=== PATIENT | female | born 1950 | race Caucasian/White ===

== ENCOUNTER → 2018-03-14 09:29 | Outpatient (CLI) | payer MEDICARE, SELFPAY ==
--- NOTE | 2018-03-14 09:30 | XR_ITS ---
XR foot wt bearing LT 3V HISTORY: Foot pain ITS.REASON: pain ORDERING PHYSICIAN: Dianelys Tan DPM PATIENT AGE: 67 years COMPARISON: None FINDINGS: No fracture or dislocation. No lytic or blastic change. There is normal mineralization.. The joint spaces are well-preserved. No significant degenerative/arthritic changes. No erosive changes evident. There is a small calcaneal spur. Normal alignment IMPRESSION: Small calcaneal spur otherwise negative
--- NOTE | 2018-03-14 10:15 | XR_ITS ---
XR foot wt bearing RT 3V HISTORY: Foot pain ITS.REASON: pain ORDERING PHYSICIAN: Dianelys Tan DPM PATIENT AGE: 67 years COMPARISON: None FINDINGS: No fracture or dislocation. No lytic or blastic change. There is normal mineralization.. The joint spaces are well-preserved. No significant degenerative/arthritic changes. No erosive changes evident. There is a small calcaneal spur IMPRESSION: Small calcaneal spur otherwise negative right
--- NOTE | 2018-03-14 10:15 | MM_ITS ---
MM Dig screening mamm BI w/CAD CAD Screening ORDERING PHYSICIAN : Dianelys Tan DPM PATIENT AGE: 67 years GENDER: Female INDICATION: Routine screening. No hormones. No new complaints; noncontributory family history. TECHNIQUE: Standard CC and MLO images were obtained. R2 CAD reviewed. COMPARISON: Previous mammograms: January 2017 digital mammogram June 2009 film screen mammogram FINDINGS: Low-density breast bilaterally with generalized fatty replacement. Minimal residual fibroglandular elements most notable towards upper-outer quadrant. However we see no dominant mass nor suspicious calcifications. CAD review highlights no areas of concern either. With this bilateral follow-up in one year the adequate. . IMPRESSION: Negative stable bilateral mammogram Low-density breast. No new areas concern. Follow-up in one year recommended. BI-RADS Category: 1 Negative RECOMMENDED FOLLOW-UP: 1YR - 1 YEAR FOLLOW-UP (A letter has been sent to the patient regarding results of the study.)
== END ==
PROVIDERS: Visit Provider Podiatrist
DX: Z12.31 Encounter for screening mammogram for malignant neoplasm of breast (principal); M79.673 Pain in unspecified foot; B35.1 Tinea unguium
CPT/HCPCS: 73630; 77067; 87102; 87206; 87220

== ENCOUNTER → 2019-03-16 10:45 | Outpatient (CLI) | payer MEDICARE, SELFPAY ==
--- NOTE | 2019-03-16 10:50 | MM_ITS ---
MM Dig screening mamm BI w/CAD ORDERING PHYSICIAN : Lizet Darby PATIENT AGE: 68 years GENDER: Female COMPARISON: Bilateral digital screening mammogram January 2017, March 2018, Film screen mammogram June 2009 INDICATION: ITS.Routine screening mammogram. No hormones. No new complaints. Noncontributory family history. TECHNIQUE: Standard CC and MLO images were obtained. R2 CAD reviewed. FINDINGS: Minimal residual fibroglandular elements/ Lower density breast with moderate generalized fatty replacement . No suspicious focal mass. No dominant mass nor suspicious calcifications. Overall similar pattern to previous studies with some minor residual fibroglandular elements superior right and left breast towards upper-outer quadrant bilateral. Bilateral follow-up in one year adequate RIGHT BREAST:Stable appearance right breast with no significant new findings. Follow-up in one year. LEFT BREAST: . No new areas of significant concern. Some minimal density in the cc view towards lateral breast appears similar to previous studies when technique is considered. Also these areas dissipate and no longer evident on the MLO view of this no findings in 2 views to raise significant concern. A follow-up in not over one year would be recommended & and would be encouraged/emphasized. I would also note that the CAD computer review highlighted no areas of significant concern in either breast ......... IMPRESSION: ......... No new areas of significant concern. Follow-up in one year recommended Fairly Stable minor area densities towardslateral breast on cc view appear to dissipate on the MLO view & seen to be most likely stable on cc view technique considered. 1 recommended and encouraged bilateral follow-up one year for ongoing evaluation BI-RADS Category: 2 Benign Finding(s) RECOMMENDED FOLLOW-UP: 1YR 1 YEAR FOLLOW-UP Follow-up in one year recommended and should be emphasized/encouraged (A letter has been sent to the patient regarding results of the study.) ,
== END ==
PROVIDERS: PCP Nurse Practitioner Family; Visit Provider Nurse Practitioner Family
DX: Z12.31 Encounter for screening mammogram for malignant neoplasm of breast (principal)
CPT/HCPCS: 77067

== ENCOUNTER → 2020-04-21 09:52 | Outpatient (CLI) | payer MEDICARE, SELFPAY ==
--- NOTE | 2020-04-21 09:57 | MM_ITS ---
PROCEDURE: MM DIG SCREENING MAMM BI W/CAD Digital Breast Tomosynthesis Included CLINICAL INDICATION: SCREENING There is no personal or family history of breast cancer. COMPARISON: [facility] DIG MAMM-SCREEN SCAR W/CAD from 02/04/2017 [facility] MM Dig screening mamm BI w/CAD from 03/14/2018 DIG MAMM-SCREEN SCAR from 03/16/2019 TECHNIQUE: Standard CC and MLO images and 3D Tomosynthesis was obtained. R2 CAD reviewed. FINDINGS: The breasts are composed primarily of fat with minimal scattered fibroglandular densities in each breast. There few benign-appearing microcalcifications in each breast. There is no suspicious lesion in either breast and no suspicious microcalcifications. IMPRESSION: Fatty type breast parenchyma with no suspicious lesions seen BI-RAD Category: 2 Benign Finding(s) FOLLOW-UP: 1YR 1 Year Follow-up (A letter has been sent to the patient regarding results of the study.) Dictated by: Dr. Norm Mantilla MD 04/22/2020 10:[address] Norm Mantilla MD in [place] 04/22/2020 10:05
== END ==
PROVIDERS: PCP Nurse Practitioner Family; Visit Provider Nurse Practitioner Family
DX: Z12.31 Encounter for screening mammogram for malignant neoplasm of breast (principal)
CPT/HCPCS: 77063; 77067

== ENCOUNTER 2020-08-23 09:12 | Emergency (ER) | payer MEDICARE, SELFPAY ==
--- NOTE | 2020-08-23 09:10 | ECG_ITS ---
APPROVED REPORT Exam: Resting ECG HR:75 bpm ECG Measurements Heart Rate 75 AXES NH 130 P 45 QRSd 86 QRS -15 QT 410 T 56 QTc 457 Conclusion Normal sinus rhythm Low voltage QRS Borderline ECG Electronically signed by : Servando Ingram, 08/25/2020 09:27:12
[2020-08-23 09:12] VITALS: BP 135/71; PULSE 82; RESP 16; TEMP 36.6; O2SAT 98; BMI 32.5
[2020-08-23 09:23] LABS: POC Glucose,Bedside 116 (70-110)
--- NOTE | 2020-08-23 09:25 | CT_ITS ---
PROCEDURE: CT HEAD/BRAIN WO CON Referring Doctor: Scott Briceno Patient Age:69Y CLINICAL INDICATION: transient vertigo Dizziness started this morning COMPARISON: MR [employer]/O MRI-C-SPINE W/O from 02/04/2017 TECHNIQUE: No IV contrast. Standard axial images were obtained. All CT scans at the facility use one or more dose reduction, viz: automated exposure control, ma/kV adjustment per patient size (including targeted exams where dose is matched to indication, i.e. head), or iterative reconstruction technique. FINDINGS: No acute intracranial findings. No territorial infarct evident. Mild age-appropriate cerebral atrophy Note subtle vague low-density in deep white matter cerebral hemispheres, reflecting chronic small vessel deep white-matter ischemic gliotic changes.-Common feature in maturing brain particularly with history hypertension diabetes, smoking vascular risk factors etc. No intracranial hemorrhage. No hydrocephalus.The ventricles and basal cisterns appear clear and satisfactory. No mass or midline shift nor mass effect. No subdural or extra-axial fluid collection is evident. Posterior fossa unremarkable. Skull intact-Mastoid air cells are well developed and clear.Nomastoid effusions. Middle ear clear. IAC's symmetric. Nosinus air-fluid level. Visualized portions of the paranasal sinuses and orbits unremarkable. IMPRESSION: No acute intracranial findings Suggestion minimal chronic small vessel deep white-matter ischemic gliotic changes cerebral hemispheres bilateral Dictated by: Bravo Ramirez MD 08/23/2020 10:12 Bravo Ramirez MD in [place] 08/23/2020 10:12
--- NOTE | 2020-08-23 09:26 | HMH.EDDIZZ ---
ED Disposition Clinical Impression: Benign paroxysmal positional vertigo Qualifiers: Laterality: right Qualified Code(s): H81.11 - Benign paroxysmal vertigo, right ear Disposition: Home, Self-Care Condition on Discharge: Good Instructions: Vertigo Prescriptions: Meclizine HCl [Meclizine 25mg Tab] 25 mg PO Q8HP PRN #30 tab PRN Reason: dizziness/vertigo Transmission Status: Pending to [id number] Referrals: Provider,Referral, MD [Primary Care Provider] - - Critical Care Critical Care Time: No Attestation: On , the high probability of a clinically significant, sudden or life threatening deterioration of the following system(s) required my full and direct attention, intervention and personal management. The time I documented below is in addition to time spent performing reported procedures but includes the following listed in this critical care notation. Medical Decision Making - Medical Records Medical records reviewed: Yes: I reviewed the patient's medical records. - Louie Inquiry Pt receiving controlled substance: No Vital Signs: 08/23/20 09:12 08/23/20 10:02 Temperature 98 F Temperature Source Oral Pulse Rate [Radial] 82 75 Respiratory Rate 16 16 Blood Pressure [Right Arm] 135/71 154/77 H Blood Pressure Mean [Right Arm] 92 102 Blood Pressure Source [Right Arm] Automatic Cuff Blood Pressure Position [Right Arm] Sitting Sitting 02 Sat by Pulse Oximetry 98 98 Oxygen Delivery Method Room Air Room Air - Lab Data Lab Results 08/23/20 09:15: POC Glucose 116 H 08/23/20 09:25: WBC 6.0, RBC 4.60, Hgb 13.2, Hct 41.2, MCV 89.6, MCH 28.8, MCHC 32.1, RDW 13.9, Plt Count 221, MPV 8.3, Neut % (Auto) 68.2, Lymph % (Auto) 21.8, [place] % (Auto) 6.2, Eos % (Auto) 2.9, Baso % (Auto) 0.9, Neut # (Auto) 4.1, Lymph # (Auto) 1.3, [place] # (Auto) 0.4, Eos # (Auto) 0.2, Baso # (Auto) 0.1 08/23/20 09:25: Sodium 139, Potassium 3.7, Chloride 104, Carbon Dioxide 27, Anion Gap 11.7, BUN 15, Creatinine 0.60, Estimated Creat Clear 75, Estimated GFR 99, Est GFR ( Amer) 120, Glucose 115 H, Calcium 9.7, Magnesium 2.0, Total Bilirubin 0.7, AST 34, ALT 21, Alkaline Phosphatase 136 H, Total Protein 7.5, Albumin 4.4, Globulin 3.1, Albumin/Globulin Ratio 1.4 Result diagrams: 08/23/20 09:25 08/23/20 09:25 Orders (Tests/Meds): ED MEDICATIONS Discontinued Medications Generic Name Dose Route Start Last Admin Trade Name Frank PRN Reason Stop Dose Admin Meclizine HCl 25 mg 08/23/20 09:30 08/23/20 09:37 Meclizine 25mg Tablet PO 08/23/20 09:31 25 mg ONCE ONE Administration - CT Data CT Scan: Head Time Received: 10:[address] Reviewed: Yes: I have reviewed the patient's CT results, I have viewed the radiologist's interpretation Preliminary Findings: Normal/NAD - ECG Data Tracing #1 ECG initial impression date: 08/23/20 ECG initial impression time: 09:15 ECG normal with no acute: arrhythmias, ischemia, conduction abnormalities, chamber hypertrophy Normal Sinus Rhythm: Yes Dizzy HPI - General Chief Complaint: Dizziness Stated Complaint: weakness Time Seen by Provider: 08/23/20 09:20 Mode of Arrival: EMS Limitations: No Limitations Description of Symptoms (Recalled from ER Triage Doc. by RN): to ed per squad pt states woke up this am with dizziness and generalized weakness. family verbalized ? facial droop. pt states she had difficulty getting out of bed states dizziness resolved but continue to c/o generalized weakness. no slurred speech, facial droop or extremitiy drift noted - History of Present Illness HPI Narrative: This is a 69-year-old female who presents by EMS with episodic/transient dizziness upon awakening. Symptoms began approximately 45 minutes ago and lasted approximately 30 minutes. Symptoms resolved prior to arrival. Patient reported that she has trouble setting up in the bed but due to the dizziness and vertigo and had to hold onto the wall while standing. Sym
[2020-08-23 09:30] LABS: Basophils # 0.1 K/mm3 (0-0.2); Basophils % 0.9 % (0.1-2.0); Eosinophils # 0.2 K/mm3 (0.0-0.4); Eosinophils % 2.9 % (0.1-12.0); Hematocrit 41.2 % (37.0-47.0); Hemoglobin 13.2 g/dL (12.2-16.2); Lymphocytes # 1.3 K/mm3 (0.7-4.5); Lymphocytes % 21.8 % (10-50); Mean Corpuscular HGB Conc 32.1 g/dL (31.8-35.4); Mean Corpuscular Hemoglobin 28.8 pg (27.0-31.2); Mean Corpuscular Volume 89.6 fl (81-99); Mean Platelet Volume 8.3 fl (7.4-10.4); Monocytes # 0.4 K/mm3 (0.1-1.0); Monocytes % 6.2 % (1.7-9.3); Neutrophils # 4.1 K/mm3 (1.8-7.8); Neutrophils % 68.2 % (37.0-80.0); Platelet Count 221 K/mm3 (142-424); Red Cell Distribution Width 13.9 % (11.5-17.5)
[2020-08-23 09:38] LABS: Potassium 3.7 mmoL/L (3.5-5.1); Sodium 139 mmol/L (136-145)
[2020-08-23 09:40] LABS: Blood Urea Nitrogen 15 mg/dl (7-17); Creatinine Clearance Estimated 75 mL/min (50-200); Estimated Glomerular Filt Rate 99 ml/min (>60); GFR (African American) 120 ML/MIN (>60)
[2020-08-23 09:41] LABS: Alanine Aminotransferase 21 U/L (12-78); Albumin Level 4.4 g/dl (3.5-5.0); Albumin/Globulin Ratio 1.4 (1.1-1.8); Alkaline Phosphatase 136 U/L (38-126); Aspartate Amino Transferase 34 U/L (14-36); Bilirubin,Total 0.7 mg/dl (0.2-1.3); Calcium 9.7 mg/dl (8.4-10.2); Carbon Dioxide 27 mmol/L (22.0-30.0); Globulin 3.1 g/dL (1.3-3.2); Glucose 115 mg/dl (74-100); Total Protein,Serum 7.5 g/dl (6.3-8.2)
[2020-08-23 09:52] LABS: Anion Gap 11.7 mEq/L (5-15); Chloride 104 mmol/L (98-107)
[2020-08-23 10:02] VITALS: BP 154/77; PULSE 75; RESP 16; O2SAT 98
[2020-08-23 10:35] VITALS: BP 145/73; PULSE 74; RESP 16; TEMP 36.6; O2SAT 98
== END 2020-08-23 10:36 | disposition home or self-care (01) ==
PROVIDERS: Emergency Provider Emergency Medicine; PCP Nurse Practitioner Family
DX: H81.11 Benign paroxysmal vertigo, right ear (principal); I10 Essential (primary) hypertension; E78.5 Hyperlipidemia, unspecified; Z79.899 Other long term (current) drug therapy
CPT/HCPCS: 70450; 80053; 82962; 83735; 85025; 93005; 99283

== ENCOUNTER 2020-09-08 13:45 | Outpatient (RCR) | payer MEDICARE, SELFPAY | END 2020-09-08 14:20 | disposition home or self-care (01) | LOC: PT 13:45 | PROVIDERS: PCP Nurse Practitioner Family; Visit Provider Nurse Practitioner Family | DX: H81.10 Benign paroxysmal vertigo, unspecified ear (principal) | CPT/HCPCS: 97140; 97163 ==

== ENCOUNTER → 2021-04-23 13:10 | Outpatient (CLI) | payer MEDICARE, SELFPAY ==
--- NOTE | 2021-04-23 13:13 | MM_ITS ---
PROCEDURE INFORMATION: Exam: MG Screening 3D Mammography Exam date and time: 04/23/2021 1:13 PM Age: 70 years old Clinical indication: Screening mammogram TECHNIQUE: Imaging protocol: Screening tomosynthesis and 2D mammography including computer-aided detection (CAD) when performed. COMPARISON: 1. MG MM DIG SCREENING MAMM BI W/CAD 04/21/2020 10:03 AM 2. MG DIG MAMM-SCREEN SCAR 03/16/2019 11:11 AM 3. MG [facility] MM Dig screening mamm BI w/CAD 03/14/2018 10:23 AM 4. MG [facility] DIG MAMM-SCREEN SCAR W/CAD 02/04/2017 5:39 PM FINDINGS: MAMMOGRAPHY: Breast composition: There are scattered areas of fibroglandular density. Mass: None. Architectural distortion: No new or suspicious architectural distortion. Calcifications: No new or suspicious calcifications are present Asymmetric density: No new or suspicious asymmetric density is present Skin thickening: None. Axillary adenopathy: None. IMPRESSION: No mammographic evidence of malignancy. Recommend annual screening mammography unless otherwise clinically indicated. ASSESSMENT: BI-RADS category 1: Negative
== END ==
PROVIDERS: PCP Nurse Practitioner Family; Visit Provider Nurse Practitioner Family
DX: Z12.31 Encounter for screening mammogram for malignant neoplasm of breast (principal)
CPT/HCPCS: 77063; 77067

== ENCOUNTER → 2022-02-04 15:51 | Outpatient (CLI) | payer MEDICARE, SELFPAY ==
--- NOTE | 2022-02-04 15:59 | XR_ITS ---
FINAL REPORT TECHNIQUE: Chest PA & Lateral CLINICAL HISTORY: COUGH FINDINGS: 2 views of the chest were performed. The heart size is normal. The mediastinum is within normal limits. There is chronic scarring in the left lung base. There is no acute cardiopulmonary process. There are no pleural effusions. There is no pneumothorax. The bony thorax appears intact. IMPRESSION: No acute cardiopulmonary process. Reviewed, Interpreted and Dictated by Robe Baird MD Transcribed by Efrain Parra Authenticated by Robe Baird MD on 02/04/2022 04:38:40 PM [facility]
[2022-02-04 17:15] LABS: Basophils # 0.3 K/mm3 (0-0.2); Basophils % 4.1 % (0.1-2.0); Eosinophils # 0.2 K/mm3 (0.0-0.4); Hematocrit 40.4 % (37.0-47.0); Hemoglobin 12.9 g/dL (12.2-16.2); Lymphocytes # 1.6 K/mm3 (0.7-4.5); Lymphocytes % 19.8 % (10-50); Mean Corpuscular HGB Conc 31.8 g/dL (31.8-35.4); Mean Corpuscular Hemoglobin 28.9 pg (27.0-31.2); Mean Corpuscular Volume 90.8 fl (81-99); Mean Platelet Volume 9.1 fl (7.4-10.4); Monocytes # 0.7 K/mm3 (0.1-1.0); Monocytes % 8.3 % (1.7-9.3); Neutrophils # 5.2 K/mm3 (1.8-7.8); Neutrophils % 65.8 % (37.0-80.0); Platelet Count 230 K/mm3 (142-424); Red Blood Count 4.45 M/mm3 (4.20-5.40); Red Cell Distribution Width 14.6 % (11.5-17.5); White Blood Count 7.9 K/mm3 (4.8-10.8)
[2022-02-04 17:23] LABS: Chloride 102 mmol/L (98-107); Potassium 4.3 mmoL/L (3.5-5.1); Sodium 139 mmol/L (136-145)
[2022-02-04 17:26] LABS: Alanine Aminotransferase 19 U/L (12-78); Albumin Level 3.7 g/dl (3.5-5.0); Albumin/Globulin Ratio 1.4 (1.1-1.8); Alkaline Phosphatase 161 U/L (38-126); Anion Gap 8.3 mEq/L (5-15); Aspartate Amino Transferase 25 U/L (14-36); Bilirubin,Total 0.6 mg/dl (0.2-1.3); Blood Urea Nitrogen 16 mg/dl (7-17); Calcium 8.9 mg/dl (8.4-10.2); Carbon Dioxide 33 mmol/L (22.0-30.0); Estimated Glomerular Filt Rate 99 ml/min (>60); GFR (African American) 119 ML/MIN (>60); Globulin 2.6 g/dL (1.3-3.2); Glucose 98 mg/dl (74-100); Total Protein,Serum 6.3 g/dl (6.3-8.2)
== END ==
PROVIDERS: PCP Nurse Practitioner Family; Visit Provider Nurse Practitioner Family
DX: I10 Essential (primary) hypertension (principal); R05.9 Cough, unspecified
CPT/HCPCS: 36415; 71046; 80053; 85025

== ENCOUNTER → 2022-04-26 09:05 | Outpatient (CLI) | payer MEDICARE, SELFPAY ==
--- NOTE | 2022-04-26 09:10 | MM_ITS ---
PROCEDURE INFORMATION: Exam: MG Bilateral Screening 3D Mammography Exam date and time: 04/26/2022 9:19 AM Age: 71 years old Clinical indication: Screening mammogram TECHNIQUE: Imaging protocol: Bilateral Screening tomosynthesis and 2D mammography including computer-aided detection (CAD) when performed. COMPARISON: 1. MG MM DIG SCREENING MAMM BI W/CAD 04/23/2021 1:16 PM 2. MG MM DIG SCREENING MAMM BI W/CAD 04/21/2020 10:03 AM 3. MG DIG MAMM-SCREEN SCAR 03/16/2019 11:11 AM 4. MG [facility] MM Dig screening mamm BI w/CAD 03/14/2018 10:23 AM FINDINGS: MAMMOGRAPHY: Breast composition: There are scattered areas of fibroglandular density. Mass: None. Architectural distortion: No new or suspicious architectural distortion. Calcifications: No new or suspicious calcifications are present Asymmetric density: No new or suspicious asymmetric density is present Skin thickening: None. Axillary adenopathy: None. IMPRESSION: No mammographic evidence of malignancy. Recommend annual screening mammography unless otherwise clinically indicated. ASSESSMENT: BI-RADS category 1: Negative
--- NOTE | 2022-04-26 09:45 | XR_ITS ---
FINAL REPORT TECHNIQUE: Bone densitometry calculations of the lumbar spine and left hip were obtained. CLINICAL HISTORY: . post menopausal FINDINGS: DEXA BONE DENSITY AXIAL SKELETON Using L1-4, the bone mineral density of the spine is 1.087 g/cm2, corresponding to T-score of 0.4. Using the left hip, the bone mineral density of the femoral neck is 0.827 g/cm2, corresponding to a T-score of -0.2. NOTE: T-score: Standard deviation compared with peak bone mass of young adult mean. *Following the recommendations of the International Society of Bone densitometry, classification of hip BMD is based on the lower of two T-scores; total hip or femoral neck. IMPRESSION: Normal bone mineral density of the lumbar spine and hip. Reviewed, Interpreted and Dictated by Celestino Crowder III, MD Transcribed by Meghana Mcgee Authenticated and [facility]
== END ==
PROVIDERS: PCP Nurse Practitioner Family; Visit Provider Nurse Practitioner Family
DX: Z12.31 Encounter for screening mammogram for malignant neoplasm of breast (principal); Z78.0 Asymptomatic menopausal state
CPT/HCPCS: 77063; 77067; 77080

== ENCOUNTER → 2022-09-21 13:30 | Outpatient (CLI) | payer MEDICARE, SELFPAY ==
--- NOTE | 2022-09-21 13:34 | XR_ITS ---
FINAL REPORT TECHNIQUE: Chest PA & Lateral CLINICAL HISTORY: ACUTE BRONCHITIS COMPARISON: 02/04/2022 FINDINGS: 2 views of the chest were performed. The heart size is normal. The mediastinum is within normal limits. There is no acute cardiopulmonary process. There are no pleural effusions. There is no pneumothorax. The bony thorax appears intact. IMPRESSION: No acute cardiopulmonary process. Reviewed, Interpreted and Dictated by Robe Baird MD Transcribed by Meghana Mcgee Authenticated and . [facility]
== END ==
PROVIDERS: PCP Nurse Practitioner Family; Visit Provider Nurse Practitioner Family
DX: J20.9 Acute bronchitis, unspecified (principal)
CPT/HCPCS: 71046

== ENCOUNTER → 2023-02-01 10:53 | Outpatient (CLI) | payer MEDICARE, SELFPAY ==
--- NOTE | 2023-02-01 10:57 | MR_ITS ---
FINAL REPORT CLINICAL HISTORY: RADICULOPATHY right hip pain with right leg pain since October 2022 FINDINGS: Multiplanar MR imaging of the lumbar spine was performed without contrast. On the sagittal T2-weighted images, there is abnormal decreased signal throughout the lumbar discs. The vertebrae are of normal height. There is grade 1 spondylolisthesis of L4 on L5 which is probably degenerative. There is fluid in the right SI joint. There is marrow edema throughout the right sacral ala. There is a questionable linear signal abnormality through the lateral right sacral ala favoring stress reaction. Underlying stress fracture cannot entirely be excluded. T12-L1: There is no significant canal stenosis or neural foraminal narrowing. L1-2: There is mild diffuse disc bulge with mild bilateral neural foraminal narrowing. L2-3: There is a mild diffuse disc bulge with mild bilateral neural foraminal narrowing. L3-4: There is a [id number] diffuse disc bulge. There is moderate facet hypertrophy. There is boue-io-yfkvkmmt spinal canal and bilateral neural foraminal narrowing. L4-5: There is a moderate diffuse disc bulge with moderate facet hypertrophy. There is moderate spinal canal stenosis. L5-S1: There is a mild diffuse disc bulge with mild bilateral neural foraminal narrowing. IMPRESSION: Fluid in the right SI joint with marrow edema throughout the right sacral ala and a questionable linear signal abnormality favoring stress reaction. Underlying stress fracture cannot be excluded. Grade 1 spondylolisthesis of L4 on L5 with moderate L4-L5 spinal canal stenosis. Reviewed, Interpreted and Dictated by Robe Baird MD Transcribed by Efrain Parra Authenticated and [facility]
== END ==
PROVIDERS: PCP Nurse Practitioner Family; Visit Provider Nurse Practitioner Family
DX: M51.16 Intervertebral disc disorders with radiculopathy, lumbar region (principal)
CPT/HCPCS: 72148; 76376

== ENCOUNTER 2023-03-02 11:00 | Outpatient (RCR) | payer MEDICARE, SELFPAY | END 2023-03-30 08:41 | disposition home or self-care (01) | LOC: PT 11:00 | PROVIDERS: PCP Nurse Practitioner Family; Visit Provider Orthopaedic Surgery | DX: M48.061 Spinal stenosis, lumbar region without neurogenic claudication (principal) | CPT/HCPCS: 97010; 97014; 97110; 97140; 97163; G0283 ==

== ENCOUNTER → 2023-03-28 17:13 | Outpatient (CLI) | payer MEDICARE, SELFPAY ==
[2023-03-28 17:18] LABS: T4 (Thyroxine) 10.6 ug/dl (5.53-11.0)
[2023-03-28 17:32] LABS: Thyroid Stimulating Hormone 1.64 uIU/mL (0.465-4.68)
== END ==
PROVIDERS: PCP Family Medicine; Visit Provider Family Medicine
DX: R53.83 Other fatigue (principal)
CPT/HCPCS: 84436; 84443

== ENCOUNTER → 2023-05-23 10:36 | Outpatient (CLI) | payer MEDICARE, SELFPAY ==
--- NOTE | 2023-05-23 10:39 | MM_ITS ---
PROCEDURE INFORMATION: Exam: MG Bilateral Screening 3D Mammography Exam date and time: 05/23/2023 10:37 AM Age: 72 years old Clinical indication: Screening examination TECHNIQUE: Imaging protocol: Bilateral Screening tomosynthesis and 2D mammography including computer-aided detection (CAD) when performed. COMPARISON: 1. MG MM DIG SCREENING MAMM BI W/CAD 04/26/2022 9:19 AM 2. MG MM DIG SCREENING MAMM BI W/CAD 04/23/2021 1:16 PM FINDINGS: MAMMOGRAPHY: Breast composition: There are scattered areas of fibroglandular density. Mass: None. Architectural distortion: None. Calcifications: No suspicious calcifications. Asymmetric density: None. Skin thickening: None. Axillary adenopathy: None. IMPRESSION: No mammographic evidence of malignancy. Annual screening is recommended unless otherwise clinically indicated. ASSESSMENT: BI-RADS Category 1: Negative
== END ==
PROVIDERS: PCP Family Medicine; Visit Provider Family Medicine
DX: Z12.31 Encounter for screening mammogram for malignant neoplasm of breast (principal)
CPT/HCPCS: 77063; 77067

== ENCOUNTER 2024-05-28 09:44 | Outpatient (CLI) | payer MEDICARE, SELFPAY ==
--- NOTE | 2024-05-28 09:49 | MM_ITS ---
PROCEDURE INFORMATION: Exam: MG Bilateral Screening 3D Mammography Exam date and time: 05/28/2024 9:44 AM Age: 73 years old Clinical indication: Screening examination TECHNIQUE: Imaging protocol: Bilateral Screening tomosynthesis and 2D mammography including computer-aided detection (CAD) when performed. COMPARISON: 1. MG MM DIG SCREENING MAMM BI W/CAD 05/23/2023 10:37 AM 2. MG MM DIG SCREENING MAMM BI W/CAD 04/26/2022 9:19 AM FINDINGS: MAMMOGRAPHY: Breast composition: There are scattered areas of fibroglandular density. Mass: None. Architectural distortion: None. Calcifications: No suspicious calcifications. Asymmetric density: None. Skin thickening: None. Axillary adenopathy: None. IMPRESSION: No mammographic evidence of malignancy. Annual screening is recommended unless otherwise clinically indicated. ASSESSMENT: BI-RADS Category 1: Negative
== END 2024-05-28 23:59 | disposition home or self-care (01) ==
LOC: RAD 09:45
PROVIDERS: PCP Nurse Practitioner Family; Visit Provider Nurse Practitioner Family
DX: Z12.31 Encounter for screening mammogram for malignant neoplasm of breast (principal)
CPT/HCPCS: 77063; 77067

== ENCOUNTER 2024-07-07 14:14 | Emergency (ER) | payer MEDICARE, SELFPAY ==
[2024-07-07 14:20] VITALS: BP 132/94; PULSE 84; RESP 19; TEMP 36.7; O2SAT 96; BMI 36.2
[2024-07-07 14:34] LABS: Apearance,Urine Cloudy (Clear); Bilirubin,Urine Negative (Negative); Blood, Urine 3+ (Negative); Color,Urine Yellow (Yellow); Glucose,Urine (UA) Negative (Negative); Ketones,Urine Negative (Negative); Protein,Urine Negative (Negative); Specific Gravity, Urine 1.015 (1.005-1.030); UTC Leukocyte Esterase,Urine 2+ (Negative); UTC Nitrate,Urine Negative (Negative); Urobilinogen,Urine 1 EU/dl (0.2)
--- NOTE | 2024-07-07 14:34 | EXP.UTC ---
Discharge Plan Disposition Patient Disposition: Home, Self-Care Condition: Good Prescriptions Prescriptions: New levofloxacin 500 mg tablet 500 mg PO DAILY 5 Days Qty: 5 0RF phenazopyridine [Pyridium] 200 mg tablet 200 mg PO Q8H Qty: 6 0RF No Action atorvastatin 20 mg tablet 1 tab PO DAILY 30 Days codeine-guaifenesin 10-100 mg/5 mL liquid 5 ml PO Q6H PRN (Reason: cough) Qty: 120 2RF methylprednisolone [Medrol (Matt)] 4 mg tablets,dose pack See Rx Instructions PO PER PKG DIR Qty: 21 0RF Rx Instructions: PO PER PKG DIR valsartan-hydrochlorothiazide 80-12.5 mg tablet 1 tab PO DAILY aspirin 81 mg tablet,delayed release (DR/EC) 81 mg PO DAILY loratadine 10 mg tablet 10 mg PO DAILY escitalopram oxalate [Lexapro] 10 mg tablet 10 mg PO DAILY Qty: 30 2RF Referrals Follow up/Referrals: Lizet Darby [Primary Care Provider] - See instructions Activity Restrictions/Add. Instructions Additional Instructions/Restrictions: Urine culture should be available Tuesday or Tuesday to ensure the proper antibiotic used Clinical Impressions Clinical Impression: Acute UTI Instructions Patient Instructions: DI for Urinary Tract Infection (UTI) Print Language Print Language: Kazakh Discharge ED Provider: Clarisa Hayes [facility] General Stated complaint: poss UTI Mode of Arrival: Ambulatory Source of Information: Patient Limitations: No Limitations Time Seen by Provider: 07/07/24 14:39 Description of Symptoms (Recalled from Triage Doc. by RN): PATIENT C/O FREQUENCY AND BURNING WITH URINATION AND PRESSURE TO LOWER ABDOMEN/PELVIC AREA THAT STARTED TODAY HEENT Symptoms (Recalled from RN notes): No Resp Symptoms (Recalled from RN notes): No Skin Symptoms (Recalled from RN notes): No MS Symptoms (Recalled from RN notes): No Functional Status (Recalled from RN notes): WNL History of Present Illness Provider Complaint: Dysuria, frequency since this am. No fever. No hematuria. No nausea/vomiting. Onset (ago): hour(s) (6) Location: pelvis Relieving factors: none Exacerbating factors: none Associated symptoms: denies other symptoms Treatments prior to arrival: none Related Data Home Medications ?Medication ?Instructions ?Recorded ?Confirmed atorvastatin 20 mg tablet 1 tab PO DAILY Cholesterol 30 days 03/14/18 05/26/23 aspirin 81 mg tablet,delayed 81 mg PO DAILY 03/28/23 05/26/23 release loratadine 10 mg tablet 10 mg PO DAILY 03/28/23 05/26/23 valsartan 80 1 tab PO DAILY HTN 03/28/23 05/26/23 mg-hydrochlorothiazide 12.5 mg tablet Previous Rx's ?Medication ?Instructions ?Recorded escitalopram oxalate 10 mg tablet 10 mg PO DAILY Depression #30 tabs 03/28/23 (Lexapro) codeine 10 mg-guaifenesin 100 mg/5 5 ml PO Q6H PRN cough #120 mL 05/26/23 mL oral liquid methylprednisolone 4 mg tablets in See Rx Instructions PO PER PKG DIR 05/26/23 a dose pack (Medrol (Matt)) #21 tabs levofloxacin 500 mg tablet 500 mg PO DAILY 5 days #5 tabs 07/07/24 phenazopyridine 200 mg tablet 200 mg PO Q8H 6 doses #6 tabs 07/07/24 (Pyridium) Allergies Allergy/AdvReac Type Severity Reaction Status Date / Time No Known Allergies Allergy Verified 05/26/23 15:18 Worker's Comp Is this a Worker's Comp case?: No [facility] Disclaimer: The information contained in this section may have been updated after the patient was seen, as this information can be updated by other users. Medical History Hyperlipidemia Hypertension Family History Father Coronary artery disease Mother Hyperlipidemia Hypertension Coronary artery disease Sister Hyperlipidemia Hypertension Diabetes Son Hyperlipidemia Hypertension Gout Son Diabetes Social History Smoking Status: Never smoker second hand expos
[2024-07-07 14:40] VITALS: BP 132/94; PULSE 84; RESP 19; TEMP 36.7; O2SAT 96
== END 2024-07-07 14:45 | disposition home or self-care (01) ==
PROVIDERS: Emergency Provider Physician Assistant; PCP Nurse Practitioner Family
DX: N39.0 Urinary tract infection, site not specified (principal); B96.29 Other Escherichia coli [E. coli] as the cause of diseases classified elsewhere
CPT/HCPCS: 81003; 87086; 87088; 87186; 99204; 99212; G0463

== ENCOUNTER 2025-05-03 10:16 | Outpatient (CLI) | payer MEDICARE, SELFPAY ==
--- OUTSIDE RECORDS SUMMARY | 2025-05-06 10:40 | XMS_ITS | Data Portability ---
Author Organization [employer], [place] [facility] [place] Address [address] [place] [address] Assessment Encounter Date Assessment Date Assessment LastModified by Organization Details LastModified Time 09/19/2024 09/19/2024 Declines colon cancer screening. [email or web address] Not available 09/19/2024 11:22:12 Plan of Treatment Reminders Order Date Submit Date Provider Last Modified By Organization Details Last Modified Time Details Appointments ANNUAL EXAM 2024 11:00A Melody Darby APRN Not available Not available Not available Lab CBC w/ auto diff 2023 024 JOHNATHAN [facility] [address] [place], [address], 09/20/2024 04:08:09 CMP, serum or plasma 2023 024 JOHNATHAN [facility] [address] [place], [address], 09/20/2024 04:08:09 HbA1c (hemoglob in A1c), blood 2023 024 JOHNATHAN [facility]), [facility] [place] [place], [address], 09/20/2024 04:08:10 TSH, ultra-sen sitive, serum 2023 024 JOHNATHAN [facility] [address] [place], [address], 09/20/2024 04:08:10 rapid flu (A+B) [address], [address], 03/21/2024 14:24:22 rapid SARS CoV 2 Ag, QL, IA, upper respirato ry specimen [address], [address] [place] [address], [id number], 03/21/2024 14:24:20 Referral None recorded. Procedures None recorded. Surgeries None recorded. Imaging None recorded. Medication Orders atorvasta tin 20 mg tablet 2024 025 [place] [employer] [facility], [address] [place] [address], [id number], 04/05/2025 11:56:11 valsartan 80 mg-hydroc hlorothia zide 12.5 mg tablet 2024 025 [place] [employer] [facility], [address] [place] [address], [id number], 04/05/2025 11:46:09 diazepam 5 mg tablet 2024 025 [place] [employer] [facility], [address] [place] [address], [id number], 04/05/2025 11:31:26 Depo-Medr ol 80 mg/mL suspensio n for injection 2024 025 [email or web address] Not available 04/05/2025 10:57:32 methocarb medardo 750 mg tablet 2024 025 [place] [employer] [facility], [address] [place] [address], [id number], 01/08/2025 12:19:32 atorvasta tin 20 mg tablet 2023 024 [place] [employer] [facility], [address] [place] [address], [id number], 03/08/2025 17:38:04 valsartan 80 mg-hydroc hlorothia zide 12.5 mg tablet 2023 024 [employer] [facility], [address] [place] [address], [id number], 04/04/2025 17:19:20 escitalop ronald 10 mg tablet 2023 024 [facility], [address] [place] [address], [id number], 01/31/2025 14:52:07 cyclobenz aprine 5 mg tablet 2023 025 [facility], [address] [place] [address], [id number], 01/08/2025 09:41:28 Depo-Medr ol 40 mg/mL suspensio n for injection 2023 024 [email or web address] Not available 09/19/2024 11:13:28 Celebrex 200 mg capsule 2023 025 [facility], [address] [place] [address], [id number], 01/08/2025 09:41:28 Paxlovid 300 mg (150 mg x 2)-100 mg tablets in a dose pack 2023 024 [facility], [address] [place] [address], [id number], 09/12/2024 14:48:27 Patient TargetsNo targets recorded. Patient InstructionsNo instructions recorded. Reason for Referral None Reported. Results Created Date Observation Date Name Description Value Unit Range Abnormal Flag Note LastModifiedBy Organization Detail LastModifiedTime 03/20/20 24 03/21/2024 LIPID PANEL , STAND STEFANO cholesterol, total 187 mg/dL <200 normal Not Available [facility] [place] [facility] [address] [place] [address], [place], [address], 03/21/2024 08:30:20 03/20/20 24 03/21/2024 LIPID PANEL , STAND STEFANO HDL cholesterol 73 mg/dL > or = 50 normal Not Available [facility] [place] [facility] [address], [place], [address], 03/21/2024 08:30:20 03/20/20 24 03/21/2024 LIPID PANEL , STAND STEFANO triglyceride s 109 mg/dL <150 normal Not Available [facility] [place] [facility] [address], [place], [address], 03/21/2024 08:30:20 03/20/20 24 03/21/2024 LIPID PANEL , STAND STEFANO LDL-choleste rol 93 mg/dL _(dinah c) normal Refer ence range : <100 Eulalia able range <100 mg/dL for prima ry preve ntion ; <70 mg/dL for patie nts with CHD or diabe tic patie nts with > or = 2 CHD risk facto rs. LDL-C is now calcu lated using the Claire n-Hop kins calcu aj n, which is a valid ated novel padma jamil than the Fried francie equat ion in the estim ation of LDL-C . Claire bolanos SS et al. JESUS. 2013; 310(1 9): 2061- 2068 (http ://ed garthati on.Qu Ava turkAltaVitas. com/f aq/FA Q164) Not Available [facility] [place] [facility] [address], [place], [address], 03/21/2024 08:30:20 03/20/20 24 03/21/2024 LIPID PANEL , STAND STEFANO chol/HDLC ratio 2.6 (calc ) <5.0 normal Not Available [facility] [place] [facility] [address], [place], [address], 03/21/2024 08:30:20 03/20/20 24 03/21/2024 LIPID PANEL , STAND STEFANO non HDL cholesterol 114 mg/dL _(dinah c) <130 normal For patie nts with diabe aj plus 1 major ASCVD risk facto r, treat ing to a non-H DL-C goal of <100 mg/dL (LDL- C of <70 mg/dL ) is consi bernadined a thera peuti c optio n. Not Available [facility] [place] [facility] [address] [place], [address], 03/21/2024 08:30:20 03/20/20 24 03/21/2024 COMPR EHENS KERRY METAB OLIC PANEL glucose 90 mg/dL 65-99 normal Fasti ng refer ence inter ivanna Not Available [facility] [place] [facility] [address] [place], [address], 03/21/2024 08:30:21 03/20/20 24 03/21/2024 COMPR EHENS KERYR METAB OLIC PANEL urea nitrogen (BUN) 19 mg/dL 7-25 normal Not Available [facility] [place] [facility] [address] [place], [address], 03/21/2024 08:30:21 03/20/20 24 03/21/2024 COMPR EHENS KERRY METAB OLIC PANEL creatinine 0.64 mg/dL 0.60-1 .00 normal Not Available [facility] [address] [place], [address], 03/21/2024 08:30:21 03/20/20 24 03/21/2024 COMPR EHENS KERRY METAB OLIC PANEL eGFR 93 mL/mi n/1.7 3m2 > or = 60 normal Not Available [facility] [place] [facility] [address] [place], [address], 03/21/2024 08:30:21 03/20/20 24 03/21/2024 COMPR EHENS KERRY METAB OLIC PANEL BUN/creatini ne ratio SEE NOTE: (calc ) 6-22 Not Repor odilia: BUN and Creat inine are withi n refer ence range . Not Available [facility] [facility] [address] [place], [address], 03/21/2024 08:30:21 03/20/20 24 03/21/2024 COMPR EHENS KERRY METAB OLIC PANEL sodium 141 mmol/ L 135-14 6 normal Not Available [facility] [address] [place], [address], 03/21/2024 08:30:21 03/20/20 24 03/21/2024 COMPR EHENS KERRY METAB OLIC PANEL potassium 4.4 mmol/ L 3.5-5. 3 normal Not Available [employer] [facility] [address] [place], [address], 03/21/2024 08:30:21 03/20/20 24 03/21/2024 COMPR EHENS KERRY METAB OLIC PANEL chloride 104 mmol/ L 98-110 normal Not Available [facility] [address] [place], [address], 03/21/2024 08:30:21 03/20/20 24 03/21/2024 COMPR EHENS KERRY METAB OLIC PANEL carbon dioxide 31 mmol/ L 20-32 normal Not Available [facility] [facility] [address] [place], [address], 03/21/2024 08:30:21 03/20/20 24 03/21/2024 COMPR EHENS KERRY METAB OLIC PANEL calcium 9.1 mg/dL 8.6-10 .4 normal Not Available [employer] [facility] [address] [place], [address], 03/21/2024 08:30:21 03/20/20 24 03/21/2024 COMPR EHENS KERRY METAB OLIC PANEL protein, total 6.3 g/dL 6.1-8. 1 normal Not Available [facility] [address] [place], [address], 03/21/2024 08:30:21 03/20/20 24 03/21/2024 COMPR EHENS KERRY METAB OLIC PANEL albumin 3.9 g/dL 3.6-5. 1 normal Not Available [facility] [place] [address] [facility] [place], [address], 03/21/2024 08:30:21 03/20/20 24 03/21/2024 COMPR EHENS KERRY METAB OLIC PANEL globulin 2.4 g/dL_ (calc ) 1.9-3. 7 normal Not Available [facility] [address] [facility] [place], [address], 03/21/2024 08:30:21 03/20/20 24 03/21/2024 COMPR EHENS KERRY METAB OLIC PANEL albumin/glob ulin ratio 1.6 (calc ) 1.0-2. 5 normal Not Available [facility] [address] [facility] [place], [address], 03/21/2024 08:30:21 03/20/20 24 03/21/2024 COMPR EHENS KERRY METAB OLIC PANEL bilirubin, total 0.7 mg/dL 0.2-1. 2 normal Not Available [employer] [facility] [address] [facility] [place], [address], 03/21/2024 08:30:21 03/20/20 24 03/21/2024 COMPR EHENS KERRY METAB OLIC PANEL alkaline phosphatase 124 U/L 37-153 normal Not Available [facility] [address] [facility] [place], [address], 03/21/2024 08:30:21 03/20/20 24 03/21/2024 COMPR EHENS KERRY METAB OLIC PANEL AST 16 U/L 10-35 normal Not Available [facility] [facility] [address] [place], [address], 03/21/2024 08:30:21 03/20/20 24 03/21/2024 COMPR EHENS KERRY METAB OLIC PANEL ALT 14 U/L 6-29 normal Not Available [facility] [address] [facility] [place], [address], 03/21/2024 08:30:21 03/20/20 24 03/21/2024 CBC (INCL UDES DIFF/ PLT) white blood cell count 6.9 thous and/u L 3.8-10 .8 normal Not Available [facility] [address] [facility] [place], [address], 03/21/2024 07:49:19 03/20/20 24 03/21/2024 CBC (INCL UDES DIFF/ PLT) red blood cell count 4.16 joann on/uL 3.80-5 .10 normal Not Available [facility] [address] [facility] [place], [address], 03/21/2024 07:49:19 03/20/2003/21/2024 CBC (INCL UDES DIFF/ PLT) hemoglobin 12.1 g/dL 11.7-1 5.5 normal Not Available [facility] [address] [facility] [place], [address], 03/21/2024 07:49:19 03/20/20 24 03/21/2024 CBC (INCL UDES DIFF/ PLT) hematocrit 38.0 % 35.0-4 5.0 normal Not Available [facility] [address] [facility] [place], [address], 03/21/2024 07:49:19 03/20/20 24 03/21/2024 CBC (INCL UDES DIFF/ PLT) MCV 91.3 fL 80.0-1 00.0 normal Not Available [facility] [address] [facility] [place], [address], 03/21/2024 07:49:19 03/20/20 24 03/21/2024 CBC (INCL UDES DIFF/ PLT) MCH 29.1 pg 27.0-3 3.0 normal Not Available [facility] [place] [facility] [address] [facility] [place], [address], 03/21/2024 07:49:19 03/20/20 24 03/21/2024 CBC (INCL UDES DIFF/ PLT) MCHC 31.8 g/dL 32.0-3 6.0 low Not Available [facility] [place] [facility] [address] [facility] [place], [address], 03/21/2024 07:49:19 03/20/20 24 03/21/2024 CBC (INCL UDES DIFF/ PLT) RDW 13.7 % 11.0-1 5.0 normal Not Available [facility] [place] [facility] [address] [place], [address], 03/21/2024 07:49:19 03/20/20 24 03/21/2024 CBC (INCL UDES DIFF/ PLT) platelet count 212 thous and/u L 140-40 0 normal Not Available [facility] [address] [facility] [place], [address], 03/21/2024 07:49:19 03/20/20 24 03/21/2024 CBC (INCL UDES DIFF/ PLT) MPV 10.8 fL 7.5-12 .5 normal Not Available [facility] [place] [facility] [address] [facility] [place], [address], 03/21/2024 07:49:19 03/20/20 24 03/21/2024 CBC (INCL UDES DIFF/ PLT) absolute neutrophils 5548 cells /uL 1500-7 800 normal Not Available [facility] [place] [facility] [address] [facility] [place], [address], 03/21/2024 07:49:19 03/20/20 24 03/21/2024 CBC (INCL UDES DIFF/ PLT) absolute lymphocytes 718 cells /uL 850-39 00 low Not Available [facility] [place] [facility] [address] [facility] [place], [address], 03/21/2024 07:49:19 03/20/20 24 03/21/2024 CBC (INCL UDES DIFF/ PLT) absolute monocytes 483 cells /uL 200-95 0 normal Not Available [facility] [place] [facility] [address] [facility] [place], [address], 03/21/2024 07:49:19 03/20/20 24 03/21/2024 CBC (INCL UDES DIFF/ PLT) absolute eosinophils 110 cells /uL 15-500 normal Not Available [facility] [place] [facility] [address] [facility] [place], [address], 03/21/2024 07:49:19 03/20/20 24 03/21/2024 CBC (INCL UDES DIFF/ PLT) absolute basophils 41 cells /uL 0-200 normal Not Available [facility] [place] [facility] [address] [facility] [place], [address], 03/21/2024 07:49:19 03/20/20 24 03/21/2024 CBC (INCL UDES DIFF/ PLT) neutrophils 80.4 % normal Not Available [facility] [place] [facility] [address] [facility] [place], [address], 03/21/2024 07:49:19 03/20/20 24 03/21/2024 CBC (INCL UDES DIFF/ PLT) lymphocytes 10.4 % normal Not Available [facility] [place] [facility] [address] [facility] [place], [address], 03/21/2024 07:49:19 03/20/20 24 03/21/2024 CBC (INCL UDES DIFF/ PLT) monocytes 7.0 % normal Not Available [facility] [place] [facility] [address] [facility], [place], [address], 03/21/2024 07:49:19 03/20/20 24 03/21/2024 CBC (INCL UDES DIFF/ PLT) eosinophils 1.6 % normal Not Available [facility] [place] [facility] [address] [place], [address], 03/21/2024 07:49:19 03/20/20 24 03/21/2024 CBC (INCL UDES DIFF/ PLT) basophils 0.6 % normal Not Available [facility] [place] [facility] [address] [place], [address], 03/21/2024 07:49:19 03/21/20 24 03/21/2024 rapid SARS CoV 2 Ag, QL, IA, upper respi rator y speci men SARS CoV Ag positi ve Not Available [address], [address], 03/21/2024 10:40:59 03/21/20 24 03/21/2024 rapid flu (A+B) Flu A negati ve Not Available [address], [address], 03/21/2024 10:40:58 03/21/20 24 03/21/2024 rapid flu (A+B) Flu B negati ve Not Available [address], [address], 03/21/2024 10:40:58 09/19/20 24 09/20/2024 CBC WITH DIFFE RENTI AL/PL ATELE T WBC 6.4 x10e3 /uL 3.4-10 .8 normal Not Available [facility] ([facility]) [address] [facility], [place], [address], 09/20/2024 04:08:09 11/06/20 24 09/20/2024 CBC WITH DIFFE RENTI AL/PL ATELE T RBC 4.48 x10e6 /uL 3.77-5 .28 normal Not Available [facility] ([facility]) [address] [place], [address], 09/20/2024 04:08:09 09/19/20 24 09/20/2024 CBC WITH DIFFE RENTI AL/PL ATELE T hemoglobin 12.6 g/dL 11.1-1 5.9 normal Not Available [facility] ([facility]) [address] [place], [address], 09/20/2024 04:08:09 09/19/20 24 09/20/2024 CBC WITH DIFFE RENTI AL/PL ATELE T hematocrit 40.1 % 34.0-4 6.6 normal Not Available [facility] ([facility]) [address] [place], [address], 09/20/2024 04:08:09 09/19/20 24 09/20/2024 CBC WITH DIFFE RENTI AL/PL ATELE T MCV 90 fL 79-97 normal Not Available [facility] ([facility]) [address] [place], [address], 09/20/2024 04:08:09 09/19/20 24 09/20/2024 CBC WITH DIFFE RENTI AL/PL ATELE T MCH 28.1 pg 26.6-3 3.0 normal Not Available [facility] ([facility]) [address] [place], [address], 09/20/2024 04:08:09 09/19/20 24 09/20/2024 CBC WITH DIFFE RENTI AL/PL ATELE T MCHC 31.4 g/dL 31.5-3 5.7 below low normal Not Available [facility] ([facility]) [address] [place], [address], 09/20/2024 04:08:09 09/19/20 24 09/20/2024 CBC WITH DIFFE RENTI AL/PL ATELE T RDW 13.0 % 11.7-1 5.4 Not Available [facility] ([facility]) [address] [facility], [place], [address], 09/20/2024 04:08:09 09/19/20 24 09/20/2024 CBC WITH DIFFE RENTI AL/PL ATELE T platelets 261 x10e3 /uL 150-45 0 normal Not Available [facility] ([facility]) [address] [facility], [place], [address], 09/20/2024 04:08:09 09/19/20 24 09/20/2024 CBC WITH DIFFE RENTI AL/PL ATELE T neutrophils 70 % not estab. normal Not Available [facility] ([facility]) [address] [facility], [place], [address], 09/20/2024 04:08:09 09/19/20 24 09/20/2024 CBC WITH DIFFE RENTI AL/PL ATELE T lymphs 20 % not estab. normal Not Available [facility] ([facility]) [address] [facility], [place], [address], 09/20/2024 04:08:09 09/19/20 24 09/20/2024 CBC WITH DIFFE RENTI AL/PL ATELE T monocytes 8 % not estab. normal Not Available [facility] ([facility]) [address] [facility], [place], [address], 09/20/2024 04:08:09 09/19/20 24 09/20/2024 CBC WITH DIFFE RENTI AL/PL ATELE T eos 1 % not estab. normal Not Available [facility] ([facility]) [address] [facility], [place], [address], 09/20/2024 04:08:09 09/19/20 24 09/20/2024 CBC WITH DIFFE RENTI AL/PL ATELE T basos 1 % not estab. normal Not Available [facility] ([facility]) [address] [facility], [place], [address], 09/20/2024 04:08:09 09/19/20 24 09/20/2024 CBC WITH DIFFE RENTI AL/PL ATELE T immature cells TECHNICAL TRAINING COORDINATOR Not Available [facility] ([facility]) [address] [facility], [place], [address], 09/20/2024 04:08:09 09/19/20 24 09/20/2024 CBC WITH DIFFE RENTI AL/PL ATELE T neutrophils (absolute) 4.5 x10e3 /uL 1.4-7. 0 normal Not Available [facility] ([facility]) [address] [facility], [place], [address], 09/20/2024 04:08:09 09/19/20 24 09/20/2024 CBC WITH DIFFE RENTI AL/PL ATELE T lymphs (absolute) 1.3 x10e3 /uL 0.7-3. 1 normal Not Available [facility] ([facility]) [address] [place], [address], 09/20/2024 04:08:09 09/19/20 24 09/20/2024 CBC WITH DIFFE RENTI AL/PL ATELE T monocytes(ab solute) 0.5 x10e3 /uL 0.1-0. 9 normal Not Available [facility] ([facility]) [address] [place], [address], 09/20/2024 04:08:09 09/19/20 24 09/20/2024 CBC WITH DIFFE RENTI AL/PL ATELE T eos (absolute) 0.1 x10e3 /uL 0.0-0. 4 normal Not Available [facility] ([facility]) [address] [place], [address], 09/20/2024 04:08:09 09/19/20 24 09/20/2024 CBC WITH DIFFE RENTI AL/PL ATELE T baso (absolute) 0.1 x10e3 /uL 0.0-0. 2 normal Not Available [facility] ([facility]) [address] [facility], [place], [address], 09/20/2024 04:08:09 09/19/20 24 09/20/2024 CBC WITH DIFFE RENTI AL/PL ATELE T immature granulocytes 0 % not estab. Not Available [facility] ([facility]) [address] [facility], [place], [address], 09/20/2024 04:08:09 09/19/20 24 09/20/2024 CBC WITH DIFFE RENTI AL/PL ATELE T immature grans (abs) 0.0 x10e3 /uL 0.0-0. 1 Not Available [facility] ([facility]) [address] [facility], [place], [address], 09/20/2024 04:08:09 09/19/20 24 09/20/2024 CBC WITH DIFFE RENTI AL/PL ATELE T NRBC TECHNICAL TRAINING COORDINATOR Not Available [facility] ([facility]) [address] [facility], [place], [address], 09/20/2024 04:08:09 09/19/20 24 09/20/2024 CBC WITH DIFFE RENTI AL/PL ATELE T hematology comments: TECHNICAL TRAINING COORDINATOR Not Available [facility] ([facility]) [address] [facility], [place], [address], 09/20/2024 04:08:09 09/19/20 24 09/20/2024 COMP. METAB OLIC PANEL (14) glucose 92 mg/dL 70-99 normal Not Available [facility] ([facility]) [address] [facility], [place], [address], 09/20/2024 04:08:09 09/19/20 24 09/20/2024 COMP. METAB OLIC PANEL (14) BUN 19 mg/dL 8-27 normal Not Available [facility] ([facility]) [address] [place], [address], 09/20/2024 04:08:09 09/19/20 24 09/20/2024 COMP. METAB OLIC PANEL (14) creatinine 0.71 mg/dL 0.57-1 .00 normal Not Available [facility] ([facility]) [address] [place], [address], 09/20/2024 04:08:09 09/19/20 24 09/20/2024 COMP. METAB OLIC PANEL (14) eGFR 89 mL/mi n/1.7 3 >59 normal Not Available [facility] ([facility]) [address], [place], [address], 09/20/2024 04:08:09 09/19/20 24 09/20/2024 COMP. METAB OLIC PANEL (14) BUN/creatini ne ratio 27 12-28 normal Not Available [facility] ([facility]) [address] [facility] [place], [address], 09/20/2024 04:08:09 09/19/20 24 09/20/2024 COMP. METAB OLIC PANEL (14) sodium 141 mmol/ L 134-14 4 normal Not Available [facility] ([facility]) [address] [facility] [place], [address], 09/20/2024 04:08:09 09/19/20 24 09/20/2024 COMP. METAB OLIC PANEL (14) potassium 4.1 mmol/ L 3.5-5. 2 normal Not Available [facility] ([facility]) [address] [facility] [place], [address], 09/20/2024 04:08:09 09/19/20 24 09/20/2024 COMP. METAB OLIC PANEL (14) chloride 101 mmol/ L 96-106 normal Not Available [facility] ([facility]) [address] [place], [address], 09/20/2024 04:08:09 09/19/20 24 09/20/2024 COMP. METAB OLIC PANEL (14) carbon dioxide, total 26 mmol/ L 20-29 normal Not Available [facility] ([facility]) [address] [place], [address], 09/20/2024 04:08:09 09/19/20 24 09/20/2024 COMP. METAB OLIC PANEL (14) calcium 9.9 mg/dL 8.7-10 .3 normal Not Available [facility] ([facility]) [address] [facility] [place], [address], 09/20/2024 04:08:09 09/19/20 24 09/20/2024 COMP. METAB OLIC PANEL (14) protein, total 6.6 g/dL 6.0-8. 5 normal Not Available [facility] ([facility]) [address] [facility], [place], [address], 09/20/2024 04:08:09 09/19/20 24 09/20/2024 COMP. METAB OLIC PANEL (14) albumin 4.0 g/dL 3.8-4. 8 normal Not Available [facility] ([facility]) [address] [facility] [place], [address], 09/20/2024 04:08:09 09/19/20 24 09/20/2024 COMP. METAB OLIC PANEL (14) globulin, total 2.6 g/dL 1.5-4. 5 Not Available [facility] ([facility]) [address] [facility] [place], [address], 09/20/2024 04:08:09 09/19/20 24 09/20/2024 COMP. METAB OLIC PANEL (14) bilirubin, total 0.4 mg/dL 0.0-1. 2 normal Not Available [facility] ([facility]) [address] [facility] [place], [address], 09/20/2024 04:08:09 09/19/20 24 09/20/2024 COMP. METAB OLIC PANEL (14) alkaline phosphatase 149 IU/L 44-121 above high normal Not Available [facility] ([facility]) [address] [place], [address], 09/20/2024 04:08:09 09/19/20 24 09/20/2024 COMP. METAB OLIC PANEL (14) AST (SGOT) 15 IU/L 0-40 normal Not Available [facility] ([facility]) [address] [place], [address], 09/20/2024 04:08:09 09/19/20 24 09/20/2024 COMP. METAB OLIC PANEL (14) ALT (SGPT) 16 IU/L 0-32 normal Not Available [facility] ([facility]) [address] [place], [address], 09/20/2024 04:08:09 09/19/20 24 09/20/2024 HEMOG LOBIN A1C hemoglobin A1C 6.1 % 4.8-5. 6 above high normal Predi abete s: 5.7 - 6.4 Diabe aj: >6.4 Glyce gloria contr ol for adult s with diabe aj: <7.0 Not Available [facility] ([facility]) [address] [place], [address], 09/20/2024 04:08:10 09/19/20 24 09/20/2024 TSH RFX ON ABNOR MAL TO FREE T4 TSH 3.100 uIU/m L 0.450- 4.500 normal Not Available [facility] ([facility]) [address] [facility], [place], [address], 09/20/2024 04:08:10 05/30/20 24 05/28/2024 MAMMO , scree terri, digit al, bilat eral No observ ation record ed. [facility] [address], [place], [address], 05/30/2024 16:11:00 Result Notes None recorded. Problems Name Problem SNOMED Code Status Onset Date Resolution Date Notes Provider Name and Address Organization Details Recorded Time Deepak reisen otoniel 19795157 Active 2023 Lizet Darby, [employer] [address] [place], [address] , [employer] 4 11:16:22 Neoplasm of uncertai n behavior of skin 94216069 Completed 202109/14/2022 Problem Code: D48.5; Problem Code Type: ICD-10; JAMESON MYNEAR null, [employer] 2 13:54:23 Neoplasm of uncertai n behavior of skin 07504214 Completed 201708/21/2018 Problem Code: D48.5; Problem Code Type: ICD-10; JAMESON MYNEAR null, [employer] 2 13:54:23 Mixed hyperlip idemia 575965150 Completed 201602/06/2018 Problem Code: E78.2; Problem Code Type: ICD-10; Not Available [facility] 2 22:14:16 Adjustme nt disorder with mixed anxiety and depresse d mood 468557765 Completed 202109/14/2022 Problem Code: F43.23; Problem Code Type: ICD-10; JAMESON MYNEAR null, [employer] 2 13:54:23 Impacted cerumen in right ear [id number] 25657 Completed 202109/14/2022 Problem Code: H61.21; Problem Code Type: ICD-10; JAMESON MYNEAR null, [employer] 2 13:54:22 Impacted cerumen of bilatera l ears 69039569145 43322 Completed 201809/14/2022 Problem Code: H61.23; Problem Code Type: ICD-10; JAMESON BARRYDUSTINEd null, [employer] 13:54:22 Benign paroxysm al position al vertigo or nystagmu s 418294684 Completed 201903/03/2021 Not [address] [facility] 2 22:14:16 Hyperten sive disorder 27224095 Completed 201608/07/2018 Problem Code: I10; Problem Code Type: ICD-10; Not Available [facility] 2 22:14:16 Acute sinusiti s 38409293 Completed 201908/31/2020 Problem Code: J01.90; Problem Code Type: ICD-10; Not Available [facility] 22:14:16 Disorder of upper respirat ory system 302231235 Completed 202109/14/2022 Problem Code: J06.9; Problem Code Type: ICD-10; JAMESON BARRYMAINE null, [employer] 13:54:22 Acute bronchit is 52298521 Completed 201809/14/2022 Problem Code: J20.9; Problem Code Type: ICD-10; JAMESON MYMAINE null, [employer] 13:54:22 Keratoma Completed 201708/12/2019 Problem Code: L84; Problem Code Type: ICD-10; Not Available [facility] 2 22:14:17 Inflamma tion of sacroili ac joint 29579416 Completed 202009/02/2021 Problem Code: M46.1; Problem Code Type: ICD-10; Not Available [facility] 2 22:14:17 Pain in left knee Completed 201908/31/2020 Problem Code: M25.562; Problem Code Type: ICD-10; Not Available [facility] 2 22:14:17 Urinary tract infectio us disease 65838787 Completed 201908/31/2020 Problem Code: N39.0; Problem Code Type: ICD-10; JAMESON MILLERR null, [employer] 2 13:54:23 Urinary tract infectio us disease 04817133 Completed 202109/14/2022 Problem Code: N39.0; Problem Code Type: ICD-10; JAMESON MILLERR null, [employer] 2 13:54:23 Menopaus e present 605960281 Completed 202109/14/2022 Problem Code: N95.1; Problem Code Type: ICD-10; JAMESON ASHANEAR null, [employer] 2 13:54:22 Cough 00714546 Completed 202109/14/2022 Problem Code: R05; Problem Code Type: ICD-10; JAMESON MILLERR null, [employer] 2 13:54:23 General examinat ion of patient Active 2019 Not Available [facility] 2 22:14:18 Screenin g mammogra phy Completed 201909/02/2021 Problem Code: Z12.31; Problem Code Type: ICD-10; JAMESON MILLERR null, [employer] 2 13:54:22 Screenin g mammogra phy Completed 202009/14/2022 Problem Code: Z12.31; Problem Code Type: ICD-10; JAMESON BARRYNEAR null, [employer] 2 13:54:22 Screenin g mammogra phy Completed 201807/11/2019 Problem Code: Z12.31; Problem Code Type: ICD-10; JAMESON BARRYNEAR null, [employer] 2 13:54:22 Body mass index 30+ - obesity 064882627 Active 2020 Problem Code: Z68.32; Problem Code Type: ICD-10; Lizet Darby, GLENN [address] [place] [address], [address] , [place] [employer] 5 13:19:08 Degenera tion of cervical interver tebral disc 43426786 Completed 201708/12/2019 Problem Code: M50.321; Problem Code Type: ICD-10; Not Available [facility] 2 22:14:19 Benign essentia l hyperten otoniel 0345805 Active 2016 Problem Code: 401.1; Problem Code Type: ICD-9; Not Available [facility] 2 22:14:20 Dysuria 44720499 Completed 201909/14/2022 Problem Code: R30.0; Problem Code Type: ICD-10; JAMESON pinedo, [employer] 2 13:54:23 Screenin g for malignan t neoplasm of breast Completed 201704/07/2018 Problem Code: V76.10; Problem Code Type: ICD-9; Not Available [facility] 2 22:14:20 Consiste ncy of urine - finding 964695643 Completed 201909/14/2022 Problem Code: R82.90; Problem Code Type: ICD-10; JAMESON pinedo, [employer] 2 13:54:23 Screenin g mammogra phy Completed 201704/07/2018 Problem Code: Z12.31; Problem Code Type: ICD-10; JAMESON pinedo, [employer] 2 13:54:22 Body mass index 30+ - obesity 920365819 Completed 201703/03/2021 Problem Code: Z68.31; Problem Code Type: ICD-10; Lizet Darby APRN [address] [place] [address], [address] , [employer] 5 13:19:08 Problem Notes None recorded. Procedures Surgical History Date Name Laterality Status Provider Name and Address Organization Details Recorded Time 4 Most Recent Mammogram completed JAMESON VELAZQUEZ [employer] 09/12/2024 14:20:29 7 ligation of bilateral fallopian tubes completed Not Available [facility] 07/20/2022 22:56:18 Imaging Results None recorded. Procedure Notes None recorded. Medical Equipment None Reported. Allergies No known drug allergies Medications Name Sig Start Date Stop Date Status Note LastModified by Organization Details LastModified Time celecoxib 200 mg capsule TAKE 1 CAPSULE 1 TIME EACH DAY NEEDED FOR NECK PAIN 01/08 completed Not Available Not Available Not Available prednisone 10 mg tablet TAKE ACCORDING TO PROVIDED INSTRUCTI ONS 04/05 completed Not Available Not Available Not Available atorvastati n 20 mg tablet Take 1 tablet every day by oral route at bedtime. 2024 active Not Available Not Available Not Avai lable Depo-Medrol 40 mg/mL suspension for injection Take 1 mL by injection route. 09/19 completed Not Available Not Available Not Available azithromyci n 250 mg tablet Take 2 tablet(s) by mouth on day 1 then 1 tablet every day for the next 4 days. 04/24 completed Not Available Not Available Not Available meloxicam 15 mg tablet TAKE 1 TABLET 1 TIME EACH DAY NEEDED 03/14 completed Not Available Not Available Not Available phenazopyri dine 200 mg tablet TAKE 1 TABLET BY MOUTH EVERY 8 HOURS 09/19 completed Not Available Not Available Not Available prednisone 20 mg tablet TAKE 2 TABLETS 1 TIME EACH DAY WITH FOOD FOR 5 DAYS 10/23 completed Not Available Not Available Not Available ciprofloxac in 500 mg tablet take 1 tablet (500 mg) by oral route 2 times per day for 7 days 05/28 completed Not Available Not Available Not Available sulfamethox azole 800 mg-trimetho prim 160 mg tablet take 1 tablet by oral route every 12 hours for 10 days 08/27 completed Not Available Not Available Not Available aspirin 81 mg tablet,jose yed release Take 1 tablet(s) by mouth daily 2017 active Not Available Not Available Not Avai lable tramadol 50 mg tablet TAKE 1 TABLET EVERY 8 HOURS NEEDED 03/14 completed Not Available Not Available Not Available Depo-Medrol 80 mg/mL suspension for injection Take 1 mL by injection route. 04/05 completed Not Available Not Available Not Available valsartan 80 mg-hydrochl orothiazide 12.5 mg tablet TAKE 1 TABLET 1 TIME EACH DAY 2024 active Not Available Not Available Not Avai lable Kenalog 40 mg/mL suspension for injection Take 1 mL by injection route. 03/20 completed Not Available Not Available Not Available Tessalon Perles 100 mg capsule one pill every 8 hours as needed for cough 04/24 completed Not Available Not Available Not Available amoxicillin 875 mg tablet take 1 tablet (875 mg) by oral route every 12 hours x 10 days 02/28 completed Not Available Not Available Not Available methocarbam ol 750 mg tablet TAKE 1 TABLET 2 TIMES EACH DAY NEEDED FOR BACK PAIN active Not Available Not Available No t Available diazepam 2 mg tablet TAKE 1 TABLET 1 HOUR BEFORE FLYING 03/20 completed Not Available Not Available Not Available doxycycline monohydrate 100 mg capsule take 1 capsule (100 mg) by oral route 2 times per day for 10 days 02/05 completed Not Available Not Available Not Available tacrolimus 0.1 % topical ointment APPLY A THIN FILM TO THE AFFECTED AREA OF SKIN 2 TIMES EACH DAY WHEN FLARED active Not Available Not Available No t Available mupirocin 2 % topical ointment APPLY TO SURGICAL SITE 1 TIME EACH DAY KEEP COVERED WITH BANDAGE. 01/08 completed Not Available Not Available Not Available clobetasol 0.05 % topical ointment WHEN FLARED APPLY A THIN FILM TO THE AFFECTED AREA OF SKIN 2 TIMES EACH DAY UP TO TWO WEEKS. STOP FOR ONE WEEK. REPEAT NEEDED active Not Available Not Available No t Available lisinopril 10 mg-hydrochl orothiazide 12.5 mg tablet Take 1 tablet(s) by mouth daily 02/28 completed Not Available Not Available Not Available levofloxaci n 500 mg tablet TAKE 1 TABLET BY MOUTH ONCE DAILY FOR 5 DAYS 09/19 completed Not Available Not Available Not Available methylpredn isolone 4 mg tablets in a dose pack TAKE ACCORDING TO PACKAGE INSTRUCTI ONS 09/14 completed Not Available Not Available Not Available cefdinir 300 mg capsule TAKE ONE CAPSULE BY MOUTH EVERY TWELVE HOURS with meals FOR 10 DAYS 03/20 completed Not Available Not Available Not Available fluticasone propionate 50 mcg/actuati on nasal spray,suspe nsion inhale 1 spray (50 mcg) in each nostril by intranasa l route 2 times per day 09/14 completed Not Available Not Available Not Available ipratropium bromide 21 mcg (0.03 %) nasal spray 1 spray(s) each nostril tid 11/05 completed Not Available Not Available Not Available diazepam 5 mg tablet TAKE 1 TABLET 2 TIMES EACH DAY NEEDED 04/05 completed Not Available Not Available Not Available meclizine 25 mg chewable tablet chew 1 tablet (25 mg) by oral route q8 hours 03/14 completed Not Available Not Available Not Available escitalopra m 10 mg tablet TAKE 1 TABLET 1 TIME EACH DAY 2024 active Not Available Not Available Not Avai lable cyclobenzap rine 5 mg tablet TAKE 1 TABLET EVERY AT BEDTIME NEEDED FOR NECK PAIN 01/08 completed Not Available Not Available Not Available nitrofurant oin monohydrate /macrocryst als 100 mg capsule TAKE 1 CAPSULE EVERY 12 HOURS FOR 7 DAYS 01/25 completed Not Available Not Available Not Available Voltaren 1 % topical gel apply 2 grams to the affected area(s) by topical route 4 times per day 09/14 completed Not Available Not Available Not Available Paxlovid 300 mg (150 mg x 2)-100 mg tablets in a dose pack Take 1 dose pk twice a day by oral route as directed for 5 days, for COVID. 09/12 completed Not Available Not Available Not Available Vitals Date Recorded Body height Body mass index (BMI) Body weight Body temperature Heart rate Oxygen saturation Oxygen saturation in Arterial blood by Pulse oximetry Systolic blood pressure Diastolic blood pressure Provider Name and Address Organization Details Last Updated DateTime 162.56 cm 35.6 kg/m2 58472.3 4 g 98 [degF] 81 /min 96 % 96 % 127 mm[Hg] 70 mm[Hg] JAMESON [email or web address] 5 09:22:47 Date Recorded Body height Body mass index (BMI) Body weight Body temperature Heart rate Oxygen saturation Oxygen saturation in Arterial blood by Pulse oximetry Systolic blood pressure Diastolic blood pressure Provider Name and Address Organization Details Last Updated DateTime 4 162.56 cm 36.9 kg/m2 56974.3 6 g 100.8 [degF] 77 /min 94 % 94 % 141 mm[Hg] 80 mm[Hg] Gina Puga [employer] 4 14:00:57 Date Recorded Body height Body mass index (BMI) Body weight Body temperature Heart rate Oxygen saturation Oxygen saturation in Arterial blood by Pulse oximetry Systolic blood pressure Diastolic blood pressure Provider Name and Address Organization Details Last Updated DateTime 5 162.56 cm 35.8 kg/m2 51520.0 9 g 98 [degF] 85 /min 95 % 95 % 107 mm[Hg] 44 mm[Hg] JAMESON [email or web address] 5 10:57:09 Date Recorded Body height Body mass index (BMI) Body weight Body temperature Heart rate Oxygen saturation Oxygen saturation in Arterial blood by Pulse oximetry Systolic blood pressure Diastolic blood pressure Provider Name and Address Organization Details Last Updated DateTime 4 162.56 cm 36.1 kg/m2 67187.5 5 g 98 [degF] 86 /min 96 % 96 % 128 mm[Hg] 52 mm[Hg] JAMESON [employer] 4 14:19:35 Date Recorded Body height Body mass index (BMI) Body weight Body temperature Heart rate Oxygen saturation Oxygen saturation in Arterial blood by Pulse oximetry Systolic blood pressure Diastolic blood pressure Provider Name and Address Organization Details Last Updated DateTime 4 162.56 cm 35.8 kg/m2 80386.3 7 g 98.1 [degF] 75 /min 94 % 94 % 123 mm[Hg] 64 mm[Hg] JAMESON [employer] 4 11:13:24 Social History Question Answer Notes LastModified by Organizat ion Details LastModified Time Tobacco Smoking Status Never Smoker ANGELES GOMEZJOSE LUIS pinedo [facility] [employer] 10/23/2022 09:51:45 Do You Have An Advance Directive? No Information n ot available 09/14/2022 Is Your Home Air Conditioned? Yes Information not available 09/14/2022 Are You Blind Or Do You Have Difficulty Seeing? No Information n ot available 09/14/2022 Are You A Caregiver? No Information not available 09/14/2022 In The 14 Days Before Symptom Onset, Have You Had Close Contact With A Laboratory-confirm ed COVID-19 While That Case Was Ill? No Information n ot available 09/14/2022 In The 14 Days Before Symptom Onset, Have You Had Close Contact With A Person Who Is Under Investigation For COVID-19 While That Person Was Ill? No Information not available 09/14/2022 Have You Been To An Area Known To Be High Risk For COVID-19? No Information not available 09/14/2022 Are You Deaf Or Do You Have Serious Difficulty Hearing? No Information not available 09/14/2022 What Type Of Diet Are You Following? REGULAR Information n ot available 09/14/2022 Have There Been Any Changes To Your Family Or Social Situation? No Information no t available 09/14/2022 Are There Any Guns Present In Your Home? No Information not available 09/14/2022 Do You Have A Medical Power Of Commercial Relationship Manager? No Information not available 09/14/2022 What Was The Date Of Your Most Recent Tobacco Screening? 04/05/2025 Information not available 04/05/2025 What Is Your Relationship Status? Information not available 09/14/2022 Do You Use Your Seat Belt Or Car Seat Routinely? Yes Information not available 09/14/2022 Do You Have Smoke And Carbon Monoxide Detectors In Your Home? Yes Information not available 09/14/2022 Are You Passively Exposed To Smoke? No Information no t available 09/14/2022 Are There Any Smokers In Your House? No Information not available 09/14/2022 Do You Use Sunscreen Routinely? No Information not available 09/14/2022 Has Tobacco Cessation Counseling Been Provided? No Information not available 09/14/2022 Have You Recently Traveled Abroad? No Information not available 09/14/2022 Do You Have Difficulty Walking Or Climbing Stairs? No Information not available 09/14/2022 Are You Currently In School? No Information not available 09/14/2022 Do You Have Any Dietary Restrictions? No Information not available 09/14/2022 Sex: Female Functional Status Question Answer Note LastModified by Organizat ion Details LastModified Time Do you use any illicit or recreational drugs? No Information not available 09/14/2022 Do you or have you ever used any other forms of tobacco or nicotine? No drobirds Information not available 10/23/2022 What is your level of alcohol consumption? None Information not available 09/14/2022 Are you currently employed? No Information not available 09/14/2022 Do you have transportation difficulties? No Information not available 09/14/2022 Do you have difficulty doing errands alone? No Information not available 09/14/2022 Are you able to care for yourself? Yes Information not available 09/14/2022 Do you have difficulty dressing or bathing? No Information not available 09/14/2022 Mental Status Question Answer Note LastModified by Organization D etails LastModified Time Do you have difficulty concentrating, remembering or making decisions? No Information no t available 09/14/2022 Family History Relationship Description Onset Age of this Age Resolved Age Notes LastModified by Organization Details LastModified Time Unspecified Relation Family history of Hypertension [email or web address] Not available 10:02:23 Unspecified Relation Family history of congestive heart failure [email or web address] Not available 2022 10:02:25 Medical History Condition Response Coronary Artery Disease N Other N Gout N Blood Diseases N Kidney Stones N Hyperthyroidism N Blood Transfusion N Breast Cancer N Emergency room visit since last appointm ent. N Lung Disease N COPD N Depression N Dermatologic Disorders N Hypothyroidism N Defects or Inherited Disease N Developmental or Behavioral Disorders N Breast Problem N Difficulty Swallowing N Anesthesia Complications N History of STI N Meniere's disease N Anxiety Disorder N Muscle, Joint, or Bone Problems N Autoimmune disease N Vision or Eye Problems N Arthritis N Polyps N Infertility N Mental Disorder N Congenital Anomalies N Acid Reflux (GERD) N Cancer N Stroke N Neurologic/Epilepsy N Endometriosis N Bladder or Kidney Problems N High Cholesterol N Liver Disease N Psychiatric/Mental Health Condition N Organ Transplant N Dialysis N Schizophrenia N Fibromyalgia N Headaches N Kidney Disease N Allergies/Hayfever N Heart Problems N Ear or Hearing Problems N Hospitalizations N Learning Disorder N Artificial Joints N Thyroid Problems N GI Problems N Acne N ADD/ADHD N Eating Disorder N Anemia N Constipation N Mental Illness N Diabetes N Ovarian Cancer N Bedwetting N Hepatitis/Liver Disease N Tuberculosis N Eczema N Abuse/Domestic Violence N Diverticulitis N Asthma N Trauma/Violence N Substance Abuse N Reflux/GERD N Depression/ depression N Hepatitis N Heart Disease N Pulmonary Embolism N Tourette Syndrome N Chronic Ear Infections N Pre-Eclampsia N Hypertension N Chicken Pox N Autism Spectrum Disorder (ASD) N Osteoporosis N Thrombophilias N Gynecological History Statement/Question Response Date of Last Pap Smear Most Recent Mammogram 05/28/2024 Obstetrics History GPAL:G 0 P 0 0 0 0 Immunizations Vaccine Type Date Status Note Provider Nam e and Address Organization Details Recorded Time pneumococcal polysaccharide PPV23 8 completed Not Available [facility] 11/25/2023 14:48:37 zoster recombinant 4 completed Lizet Darby APRN [address] [place], [address], [employer] 04/06/2024 15:38:19 zoster recombinant 4 completed Lizet Darby APRN [address] [place], [address], [employer] 09/23/2024 19:09:26 COVID-19, mRNA, LNP-S, PF, 100 mcg/0.5mL dose or 50 mcg/0.25mL dose 1 completed JAMESON pinedo, [employer] 09/14/2022 13:52:23 COVID-19, mRNA, LNP-S, PF, 100 mcg/0.5mL dose or 50 mcg/0.25mL dose 1 completed JAMESON pinedo, [place] [email or web address] 09/14/2022 13:52:23 COVID-19, mRNA, LNP-S, PF, 100 mcg/0.5mL dose or 50 mcg/0.25mL dose 1 completed JAMESONYOJANA pinedo, [employer] 09/14/2022 13:52:23 Past Encounters Encounter ID Performer Location Encounter Start Date Encounter Closed Date Diagnosis/Indication Diagnosis SNOMED-CT Code Diagnosis ICD10 Code Diagnosis Note [id number] Lizet Darby [place] [address] 09/14/2022 13:21:51 09/14/2022 14:20:52 Acute right otitis media 568617194 H66.91 Restart meclizine prn Dizziness and vertigo symptoms. Recommende d Flonase over-the-c ounter daily, complete all antibiotic . [id number] Lizet Darby [place] [address] 10/23/2022 09:26:34 10/23/2022 10:12:12 Urinary symptoms 730581021 R39.9 Low back pain 230040589 M54.50 [id number] Lizet Darby [place] [address] 0 01/25/2023 10:27:29 01/25/2023 11:20:05 Radiculopathy due to lumbar intervertebral disc disorder 5686486370 15389 M51.16 rest, ice, stretches, meds as below, obtain MRI. Louie reviewed today. [id number] Lizet Darby [place] [address] 03/14/2023 10:53:24 03/14/2023 11:46:09 Benign essential hypertension 0173431 I10 Continue meds, DASH diet, increase exercise encouraged . Mixed hyperlipidemia 267 961688 E78.2 General ex amination of patient 553569556 Z00.00 Body mass index 30+ - obesity 533562701 Z68.32 Fear of flying 000616563 F40.243 Fatigue 62374416 R53.83 Bereavement 13483681 Z63 .4 Restart Lexapro [id number] Lizet Darby [place] [address] 0 09/14/2023 10:44:19 09/14/2023 11:21:37 Benign essential hypertension 1439542 I10 Continue meds, DASH diet, increase exercise encouraged . Hyperglycemia 84825120 R 73.9 Pain of ri ght shoulder joint 1845624322 8839468 M25.511 RICE, topical voltaren, she wants to defer referral to Ortho for now Mixed hyperlipidemia 267 683596 E78.2 Continue statin and low fat diet [id number] Lizet Darby [place] [address] 0 11/25/2023 14:48:25 11/25/2023 16:38:43 Acute bronchitis 10804464 J20.9 Cough The patient presents wet cough. The patient's condition is worsening. Based on the findings today we will begin medication therapy. Reviewed symptomati c care instructio ns, the expected course of these illnesses and explained that coughing can persist for some time. Provided precaution s for signs of worsening disease and instructio ns on contacting us if symptoms worsen. [id number] Lizet Darby [place] [address] 0 03/20/2024 11:20:05 03/20/2024 11:48:21 Adult health examination 465093227 Z00.00 She refuses all colon cancer screening. Benign ess ential hypertension 5307667 I10 Continue meds, DASH diet, increase exercise encouraged . Mixed hyperlipidemia 267 392055 E78.2 Continue statin and low fat diet Bereavement 98890266 Z63 .4 Continue Lexapro Screening mammography 24 688597 Z12.31 Active or passive immunization 958249888 Z23 Body mass index 30+ - obesity 639072915 Z68.32 [id number] Lizet Darby [place] [address] 0 03/21/2024 13:49:47 03/21/2024 14:35:31 Headache 06838701 R51.9 COVID-19 390444754 U07.1 Patient presented with symptoms of upper respirator y infection. Advised to drink plenty of fluids, run a cool-mist humidifier in room at night, gargle salt water for sore throat, and get plenty of rest. Patient should avoid over-exert ion and reduce exposure to irritants such as smoke, cold, dry air, and dust. Treatment currently involves symptomati c relief. Patient may take acetaminop hen or ibuprofen as directed to reduce fever and body aches. Antihistam ine and decongesta nt usage was discussed and recommenda tions made. Patient understood these instructio ns and will follow up in the office in 10 days to 2 weeks if symptoms not improving. Covid isolation and masking guidelines explained. Use of paxlovid explained. [id number] [place] [address] 09/12/2024 13:53:42 09/12/2024 15:03:56 Neck pain 04852474 M54.2 RICE, meds as below. May also use tylenol and topicals prn. She declines PT and Ortho referral for now. She is to avoid lifting, pushing and pulling and notify me if not improved in 1 week. [id number] [place] [address] 09/19/2024 10:52:36 09/19/2024 12:17:53 Essential hypertension 84072073 I10 DASH diet, exercise, weight loss encouraged . Bereavement 54479995 Z63 .4 Continue Lexapro Body mass index 30+ - obesity 866256246 Z68.32 Active or passive immunization 807444602 Z23 Mixed hyperlipidemia 267 493029 E78.2 Continue statin and low fat diet Benign ess ential hypertension 5214872 I10 Continue meds, DASH diet, increase exercise encouraged . [id number] [place] [address] 01/08/2025 09:14:11 01/08/2025 09:56:01 Fear of flying [id number] F40.243 Radiculopa thy due to lumbar intervertebral disc disorder [id number] 69009 M51.16 Louie reviewed today. KEAGAN. Cautioned for over sedation with meds. She was encouraged to rent a mobility scooter for use on her vacation when she arrives in [place]. [id number] Lizet Darby APRN [address] [address] 04/05/2025 10:46:55 04/05/2025 11:57:05 Essential hypertension 03134460 I10 DASH diet, exercise, weight loss encouraged . Mixed hyperlipidemia 267 408664 E78.2 Continue statin and low fat diet Body mass index 30+ - obesity 616916990 E66.9 Health Concerns Section Related Observation LastModified by Organization Detai ls LastModified Time None Recorded Concern Status LastModified by Organization Details LastModified Time None Recorded Advance Directives Directive N: Payers Insurance Date Sequence Insurance Name Policy Number Policy Slater Covered Member ID Slater Member ID Guarantor Name 04/09/2025 1 [employer] (MEDICARE REPLACEMENT/AD VANTAGE - PPO) [id number] Coleen Chowdhury [id number] Coleen Chowdhury 04/03/2025 MEDICARE [place]: [facility] [place] - [facility] [id number] Coleen Chowdhury [id number] Coleen Chowdhury Notes Date Note Type Note Provider Name and Address Organization Details Recorded Time 4 text/html Upper Respiratory SymptomsReported bypatient.Location:head; throat; nasal Quality:dry cough;hurts to swallow;nasal discharge Severity:moderate Duration:symptoms lasting less than 2 weeks Onset/Timing:sudden; date of onset: (03/20/24) Context:no sick contacts; non-smoker;foreign travel;allergies Alleviating Factors:analgesics Associated Symptoms:no chest pain; no sputum production; no shortness of breath; no wheezing; no cyanosis;fatigue;fever;sore throat;nausea;headache;chil ls;malaise Lizet Darby APRN [address] [place] [address], [phone], [employer]. 03/21/2024 14:35:20 4 text/html Neck PainReported bypatient.Location:left; posterior; deep; radiates to left shoulder Quality:aching; spasms Severity:moderate Duration:1 weeks; intermittent episodes lasting: Timing:recurrent Context:had spinal DDD Alleviating Factors:heat; topical analgesics Aggravating Factors:twisting; motion Neurological Complaints:none Other Associated Symptoms:no redness; no warmth; no ecchymosis; no grinding; no fever; no chills; no weight loss;swelling Previous Surgery:none Prior Imaging:none Neck pain and spasms since carrying in groceries last . Lizet Darby APRN [address] [place] [address], [phone], [employer] 09/12/2024 16:14:38 4 text/html Anxiety/DepressionReported bypatient.Severity:denies suicidal ideations; able to maintain relationships; symptoms improved; grief after of her spouse Duration:chronic Onset/Timing:sudden Context:bereavement Modifying Factors:social support; medications as directed Associated Symptoms:denies homicidal ideations; no significant weight gain; no significant weight loss; no visual/auditory hallucinations; no delusions; no shortness of breath;depression;lonelines s;grievingNotes:Improving on LexaproHyperlipidemiaReport ed bypatient.Duration:chronic Control:improving Adherence to Treatment Plan:follows recommended diet; takes medications as prescribed;does not exercise Complications:no coronary artery disease; no peripheral artery disease; no cardiovascular disease Risk Factors:hypertension;obesit yHypertension F/UReported bypatient.Medications:takin g medications as directed; no side effects from medication Lifestyle:limits sodium intake;not exercising regularly Associated Symptoms:no dizziness; no lightheadedness; no chest pain; no shortness of breath; no palpitations; no edema; no calf pain with exertion; no headache Lizet Dabry APRN [address] [place], [address], [employer]. 09/23/2024 19:10:49 5 text/html Complain of flare of chronic low back pain radiating in the left sciatic pattern. she underwent epidural steroid injection on December 19 and she did not find this injection is helpful as her previous injection. She is leaving on a vacation to travel to [place] with her son and anticipates to be doing quite a bit of walking while there. She has a long history of lumbar degenerative disc disease with canal stenosis. She also needs a refill of the diazepam she uses only for significant phobia of airline flights. Lizet Darby APRN [address] [place], [address], [employer]. 01/09/2025 10:30:12 5 text/html HyperlipidemiaReported bypatient.Duration:chronic Control:improving Adherence to Treatment Plan:follows recommended diet; takes medications as prescribed;does not exercise Complications:no coronary artery disease; no peripheral artery disease; no cardiovascular disease Risk Factors:hypertension;obesit yHypertension F/UReported bypatient.Medications:takin g medications as directed; no side effects from medication Lifestyle:limits sodium intake;not exercising regularly Associated Symptoms:no dizziness; no lightheadedness; no chest pain; no shortness of breath; no palpitations; no edema; no calf pain with exertion; no headache Reports she feels well. Has been seeing Derm for treatment of eczema. Lizet Darby APRN [address] [place], [address], [employer] 04/05/2025 13:19:32 OBGyn Episode No OBEpisode recorded.
--- OUTSIDE RECORDS SUMMARY | 2025-05-06 10:40 | XMS_ITS | Continuity of Care Document ---
Author Organization [facility], [facility] Address [address] [place] [address] Assessment No assessment recorded. Plan of Treatment Reminders Order Date Submit Date Provider Last Modified By Organization Details Last Modified Time Details Appointments ANNUAL EXAM 2024 11:00A M Maurice Darby APRN Not available Not available Not available Lab None recorded. Referral None recorded. Procedures None recorded. Surgeries None recorded. Imaging None recorded. Medication Orders atorvasta tin 20 mg tablet 2024 025 [employer], [address], [place], [id number], 04/05/2025 11:56:11 valsartan 80 mg-hydroc hlorothia zide 12.5 mg tablet 2024 025 [employer], [address], [place], [id number], 04/05/2025 11:46:09 Patient TargetsNo targets recorded. Patient InstructionsNo instructions recorded. Reason for Referral None Reported. Problems Name Problem SNOMED Code Status Onset Date Resolution Date Notes Provider Name and Address Organization Details Recorded Time Deepak reisen otoniel 08366377 Active 2023 Lizet Darby APRN [address] [place], [address] , [email or web address]. 11:16:22 Neoplasm of uncertai n behavior of skin 24892470 Completed 202109/14/2022 Problem Code: D48.5; Problem Code Type: ICD-10; JAMESON MILLERR null, [employer] 2 13:54:23 Neoplasm of uncertai n behavior of skin 37680690 Completed 201708/21/2018 Problem Code: D48.5; Problem Code Type: ICD-10; JAMESON MILLERR null, [employer] 2 13:54:23 Mixed hyperlip idemia 727825694 Completed 201602/06/2018 Problem Code: E78.2; Problem Code Type: ICD-10; Not Available [facility] 22:14:16 Adjustme nt disorder with mixed anxiety and depresse d mood 179938350 Completed 202109/14/2022 Problem Code: F43.23; Problem Code Type: ICD-10; JAMESON MILLERR null, [employer] 2 13:54:23 Impacted cerumen in right ear 45414071782 34659 Completed 202109/14/2022 Problem Code: H61.21; Problem Code Type: ICD-10; JAMESON MILLERR null, [employer] 2 13:54:22 Impacted cerumen of bilatera l ears 34643350409 86657 Completed 201809/14/2022 Problem Code: H61.23; Problem Code Type: ICD-10; JAMESON MILLERR null, [employer] 2 13:54:22 Benign paroxysm al position al vertigo or nystagmu s 389499451 Completed 201903/03/2021 Not Available [facility] 22:14:16 Hyperten sive disorder 28018874 Completed 201608/07/2018 Problem Code: I10; Problem Code Type: ICD-10; Not Available [employer] 22:14:16 Acute sinusiti s 29140501 Completed 201908/31/2020 Problem Code: J01.90; Problem Code Type: ICD-10; Not Available [facility] 2 22:14:16 Disorder of upper respirat ory system 141829537 Completed 202109/14/2022 Problem Code: J06.9; Problem Code Type: ICD-10; JAMESON BARRYMAINE null, [employer] 2 13:54:22 Acute bronchit is 21186611 Completed 201809/14/2022 Problem Code: J20.9; Problem Code Type: ICD-10; JAMESON BARRYMAINE null, [employer] 2 13:54:22 Keratoma Completed 201708/12/2019 Problem Code: L84; Problem Code Type: ICD-10; Not Available [facility] 2 22:14:17 Inflamma tion of sacroili ac joint 71838877 Completed 202009/02/2021 Problem Code: M46.1; Problem Code Type: ICD-10; Not Available [facility] 2 22:14:17 Pain in left knee Completed 201908/31/2020 Problem Code: M25.562; Problem Code Type: ICD-10; Not Available [facility] 2 22:14:17 Urinary tract infectio us disease 56603105 Completed 201908/31/2020 Problem Code: N39.0; Problem Code Type: ICD-10; JAMESON BARRYDUSTINR null, [employer] 2 13:54:23 Urinary tract infectio us disease 57617929 Completed 202109/14/2022 Problem Code: N39.0; Problem Code Type: ICD-10; JAMESON BARRYNEAR null, [employer] 2 13:54:23 Menopaus e present 660835270 Completed 202109/14/2022 Problem Code: N95.1; Problem Code Type: ICD-10; JAMESON ASHADUSTINR null, [employer] 2 13:54:22 Cough 17918929 Completed 202109/14/2022 Problem Code: R05; Problem Code Type: ICD-10; JAMESON BARRYNEAR null, [employer] 2 13:54:23 General examinat ion of patient Active 2019 Not Available [facility] 2 22:14:18 Screenin g mammogra phy Completed 201909/02/2021 Problem Code: Z12.31; Problem Code Type: ICD-10; JAMESON BARRYNEAR null, [employer] 2 13:54:22 Screenin g mammogra phy Completed 202009/14/2022 Problem Code: Z12.31; Problem Code Type: ICD-10; JAMESON ASHANEAR null, [employer] 2 13:54:22 Screenin g mammogra phy Completed 201807/11/2019 Problem Code: Z12.31; Problem Code Type: ICD-10; JAMESON ASHANEAR null, [employer] 2 13:54:22 Body mass index 30+ - obesity 532324030 Active 2020 Problem Code: Z68.32; Problem Code Type: ICD-10; Lizet Darby, [employer] [address] [place] [address], [address] , [employer] 5 13:19:08 Degenera tion of cervical interver tebral disc 79068864 Completed 201708/12/2019 Problem Code: M50.321; Problem Code Type: ICD-10; Not Available [facility] 2 22:14:19 Benign essentia l hyperten otoniel 3689744 Active 2016 Problem Code: 401.1; Problem Code Type: ICD-9; Not Available [facility] 2 22:14:20 Dysuria 73913629 Completed 201909/14/2022 Problem Code: R30.0; Problem Code Type: ICD-10; JAMESON CAROLINE pinedo, [employer] 2 13:54:23 Screenin g for malignan t neoplasm of breast Completed 201704/07/2018 Problem Code: V76.10; Problem Code Type: ICD-9; Not Available [facility] 2 22:14:20 Consiste ncy of urine - finding 316278463 Completed 201909/14/2022 Problem Code: R82.90; Problem Code Type: ICD-10; JAMESON pinedo, [employer] 2 13:54:23 Screenin g mammogra phy Completed 201704/07/2018 Problem Code: Z12.31; Problem Code Type: ICD-10; JAMESON pinedo, [employer] 2 13:54:22 Body mass index 30+ - obesity 502346725 Completed 201703/03/2021 Problem Code: Z68.31; Problem Code Type: ICD-10; Lizet Wilner, [employer] [address] [place] [address], [address] , [employer] 5 13:19:08 Problem Notes None recorded. Procedures Surgical History Date Name Laterality Status Provider Name and Address Organization Details Recorded Time 4 Most Recent Mammogram completed JAMESON VELAZQUEZ [employer] 09/12/2024 14:20:29 7 ligation of bilateral fallopian tubes completed Not Available [facility] 07/20/2022 22:56:18 Imaging Results None recorded. Procedure [...] Updated DateTime 5 162.56 cm 35.8 kg/m2 22982.0 9 g 98 [degF] 85 /min 95 % 95 % 107 mm[Hg] 44 mm[Hg] JAMESON VELAZQUEZ [employer] 5 10:57:09 Social History Question Answer Notes LastModified by Organizat ion Details LastModified Time Tobacco Smoking Status Never Smoker ANGELES BIRDCLEVE pinedo [employer] 10/23/2022 09:51:45 Do You Have An [...] Do You Have A Medical Power Of [employer]? No Information not available 09/14/2022 What Was [...] Lung Disease N COPD N Depression N Hypothyroidism N Dermatologic Disorders N Defects or Inherited Disease N Developmental or Behavioral Disorders N Breast Problem N Difficulty Swallowing N Anesthesia Complications N History of STI N Anxiety Disorder N Meniere's disease N Autoimmune disease N Muscle, Joint, or Bone Problems N Vision or Eye Problems N Arthritis N Infertility N Polyps N Mental Disorder N Congenital Anomalies N Acid Reflux (GERD) N Cancer N Stroke N Neurologic/Epilepsy N Endometriosis N Bladder or Kidney Problems N High Cholesterol N Liver Disease N Organ Transplant N Psychiatric/Mental Health Condition N Dialysis N Headaches N Fibromyalgia N Schizophrenia N Kidney Disease N Allergies/Hayfever N Heart [...] pneumococcal polysaccharide PPV23 8 completed Not Available [employer] 11/25/2023 14:48:37 zoster recombinant 4 completed Lizet Darby APRN [address] [place] [address], [phone], [employer] 04/06/2024 15:38:19 zoster recombinant 4 completed Lizet Darby APRN [address] [place] [address], [address], [employer] 09/23/2024 19:09:26 COVID-19, mRNA, LNP-S, PF, 100 mcg/0.5mL dose or 50 mcg/0.25mL dose 1 completed JAMESON MYNEAR null, [employer] 09/14/2022 13:52:23 COVID-19, mRNA, LNP-S, PF, 100 mcg/0.5mL dose or 50 mcg/0.25mL dose 1 completed JAMESON MYNEAR null, [employer] 09/14/2022 13:52:23 COVID-19, mRNA, LNP-S, PF, 100 mcg/0.5mL dose or 50 mcg/0.25mL dose 1 completed JAMESON MYNEAR null, [employer] 09/14/2022 13:52:23 Past Encounters Encounter ID Performer Location Encounter Start Date Encounter Closed Date Diagnosis/Indication Diagnosis SNOMED-CT Code Diagnosis ICD10 Code Diagnosis Note [id number] Lizet Darby, [employer] [address] [address] 04/05/2025 10:46:55 04/05/2025 11:57:05 Essential hypertension 38544232 I10 DASH diet, exercise, weight loss encouraged . Mixed hyperlipidemia 267 744944 E78.2 Continue statin and low fat diet Body mass index 30+ - obesity 629758707 E66.9 Health Concerns Section Related Observation LastModified by Organization Detai ls LastModified Time None Recorded Concern Status LastModified by Organization Details LastModified Time None Recorded Payers Encounter Date Sequence Insurance Name Policy Number Policy Slater Covered Member ID Slater Member ID Guarantor Name 04/05/2025 1 [employer] (MEDICARE REPLACEMENT/A DVANTAGE - PPO) [id number] Coleen Chowdhury [id number] Coleen Chowdhury Notes Date Note Type Note Provider Name and Address Organization Details Recorded Time text/html HyperlipidemiaReported bypatient.Duration:chronic Control:improving Adherence to Treatment [...] treatment of eczema. Lizet Darby APRN [address] [place], [address], [facility] [employer] 04/05/2025 13:19:32 OBGyn Episode No OBEpisode recorded.
== END 2025-05-03 23:59 | disposition home or self-care (01) ==
LOC: LAB.DROPOF 05-06 10:17
PROVIDERS: PCP Nurse Practitioner Family; Visit Provider Nurse Practitioner Family
DX: N39.0 Urinary tract infection, site not specified (principal)
CPT/HCPCS: 87086; 87088; 87186

== ENCOUNTER 2025-05-09 13:20 | Outpatient (CLI) | payer MEDICARE, SELFPAY ==
[2025-05-09 16:56] LABS: Basophils # 0.1 K/mm3 (0-0.2); Basophils % 0.9 % (0.1-2.0); Eosinophils # 0.1 Kmm3 (0.0-0.4); Eosinophils % 1.3 % (0.1-12.0); Hematocrit 38.5 % (37.0-47.0); Hemoglobin 12.5 g/dL (12.2-16.2); Immature Granulocytes # 0.03 10^3uL; Immature Granulocytes % 0.4 %; Lymphocytes # 1.3 K/mm3 (0.7-4.5); Mean Corpuscular HGB Conc 32.5 g/dL (31.8-35.4); Mean Corpuscular Hemoglobin 30.1 pg (27.0-31.2); Mean Corpuscular Volume 92.8 fl (81-99); Mean Platelet Volume 10.6 fl (7.4-10.4); Monocytes # 0.7 K/mm3 (0.1-1.0); Monocytes % 9.8 % (1.7-9.3); Neutrophils # 5.3 K/mm3 (1.8-7.8); Neutrophils % 70.6 % (37.0-80.0); Nucleated Red Blood Cells # 0 10^3/uL; Nucleated Red Blood Cells % 0 %; Platelet Count 275 K/mm3 (142-424); Red Blood Count 4.15 M/mm3 (4.20-5.40); Red Cell Distribution Width 14.6 % (11.5-17.5); Red Cell Distribution Width-SD 49.6 fL; White Blood Count 7.5 K/mm3 (4.8-10.8)
[2025-05-09 17:58] LABS: Albumin Level 3.8 g/dl (3.5-5.0); Chloride 101 mmol/L (98-107); Potassium 4.5 mmoL/L (3.5-5.1); Sodium 138 mmol/L (136-145)
[2025-05-09 18:00] LABS: Blood Urea Nitrogen 18 mg/dl (7-17); Estimated Glomerular Filt Rate 61 ml/min (>60); GFR (African American) 74 ML/MIN (>60)
[2025-05-09 18:01] LABS: Alanine Aminotransferase 22 U/L (12-78); Albumin/Globulin Ratio 1.5 (1.1-1.8); Alkaline Phosphatase 118 U/L (38-126); Anion Gap 15.5 mEq/L (5-15); Aspartate Amino Transferase 28 U/L (14-36); Bilirubin,Total 0.4 mg/dl (0.2-1.3); Calcium 9.2 mg/dl (8.4-10.2); Carbon Dioxide 26 mmol/L (22.0-30.0); Globulin 2.5 g/dL (1.3-3.2); Glucose 103 mg/dl (74-100); Total Protein,Serum 6.3 g/dl (6.3-8.2)
[2025-05-09 18:32] LABS: Thyroid Stimulating Hormone 2.12 uIU/mL (0.465-4.68)
[2025-05-09 18:42] LABS: HIV Combo NEGATIVE (Negative)
[2025-05-09 18:51] LABS: Hepatitis C Ab Qual. W/ RFX NEGATIVE (Negative)
[2025-05-10 08:35] LABS: Hemoglobin A1C 6.6 % (4.0-6.0)
--- OUTSIDE RECORDS SUMMARY | 2025-05-10 10:21 | XMS_ITS | Continuity of Care Document ---
Author Organization [employer], [facility] Address [address] [place] [address] Assessment No assessment recorded. Plan of Treatment Reminders Order Date Submit Date Provider Last Modified By Organization Details Last Modified Time Details Appointments ANNUAL EXAM 2024 11:00A M Maurice Darby APRN Not available Not available Not available Lab None recorded. Referral None recorded. Procedures None recorded. Surgeries None recorded. Imaging None recorded. Medication Orders atorvasta tin 20 mg tablet 2024 025 [place], [address], [place], [id number], 04/05/2025 11:56:11 valsartan 80 mg-hydroc hlorothia zide 12.5 mg tablet 2024 025 [facility], [address], [place], [id number], 04/05/2025 11:46:09 Patient TargetsNo targets recorded. Patient InstructionsNo instructions recorded. Reason for Referral None Reported. Problems Name Problem SNOMED Code Status Onset Date Resolution Date Notes Provider Name and Address Organization Details Recorded Time Deepak reisen otoniel 76699021 Active 2023 Lizet Darby APRN [address] [place], [address] , [employer]. 11:16:22 Neoplasm of uncertai n behavior of skin 25698266 Completed 202109/14/2022 Problem Code: D48.5; Problem Code Type: ICD-10; JAMESON MILLERR null, [employer] 2 13:54:23 Neoplasm of uncertai n behavior of skin 49794712 Completed 201708/21/2018 Problem Code: D48.5; Problem Code Type: ICD-10; JAMESON MILLERR null, [employer] 2 13:54:23 Mixed hyperlip idemia 214780305 Completed 201602/06/2018 Problem Code: E78.2; Problem Code Type: ICD-10; Not Available [facility] 22:14:16 Adjustme nt disorder with mixed anxiety and depresse d mood 377074210 Completed 202109/14/2022 Problem Code: F43.23; Problem Code Type: ICD-10; JAMESON MILLERR null, [employer] 2 13:54:23 Impacted cerumen in right ear [id number] 83753 Completed 202109/14/2022 Problem Code: H61.21; Problem Code Type: ICD-10; JAMESON MILLERR null, [employer] 2 13:54:22 Impacted cerumen of bilatera l ears 65785123945 38881 Completed 201809/14/2022 Problem Code: H61.23; Problem Code Type: ICD-10; JAMESON MILLERR null, [employer] 2 13:54:22 Benign paroxysm al position al vertigo or nystagmu s 034402398 Completed 201903/03/2021 Not Available [facility] 22:14:16 Hyperten sive disorder 04641346 Completed 201608/07/2018 Problem Code: I10; Problem Code Type: ICD-10; Not Available [employer] 22:14:16 Acute sinusiti s 94764999 Completed 201908/31/2020 Problem Code: J01.90; Problem Code Type: ICD-10; Not Available [facility] 2 22:14:16 Disorder of upper respirat ory system 548807229 Completed 202109/14/2022 Problem Code: J06.9; Problem Code Type: ICD-10; JAMESON BARRYMAINE null, [employer] 2 13:54:22 Acute bronchit is 25715363 Completed 201809/14/2022 Problem Code: J20.9; Problem Code Type: ICD-10; JAMESON BARRYMAINE null, [employer] 2 13:54:22 Keratoma Completed 201708/12/2019 Problem Code: L84; Problem Code Type: ICD-10; Not Available [facility] 2 22:14:17 Inflamma tion of sacroili ac joint 24177949 Completed 202009/02/2021 Problem Code: M46.1; Problem Code Type: ICD-10; Not Available [facility] 2 22:14:17 Pain in left knee Completed 201908/31/2020 Problem Code: M25.562; Problem Code Type: ICD-10; Not Available [facility] 2 22:14:17 Urinary tract infectio us disease 89871463 Completed 201908/31/2020 Problem Code: N39.0; Problem Code Type: ICD-10; JAMESON BARRYDUSTINR null, [employer] 2 13:54:23 Urinary tract infectio us disease 40719646 Completed 202109/14/2022 Problem Code: N39.0; Problem Code Type: ICD-10; JAMESON BARRYNEAR null, [employer] 2 13:54:23 Menopaus e present 600503010 Completed 202109/14/2022 Problem Code: N95.1; Problem Code Type: ICD-10; JAMESON ASHADUSTINR null, [employer] 2 13:54:22 Cough 47728523 Completed 202109/14/2022 Problem Code: R05; Problem Code Type: ICD-10; JAMESON BARRYNEAR null, [employer] 2 13:54:23 General examinat ion of patient Active 2019 Not Available [facility] 2 22:14:18 Screenin g mammogra phy Completed 201909/02/2021 Problem Code: Z12.31; Problem Code Type: ICD-10; JAMESON BARRYNEAR null, [employer] 2 13:54:22 Screenin g mammogra phy Completed 202009/14/2022 Problem Code: Z12.31; Problem Code Type: ICD-10; JAMESON ASHANEAR null, [employer] 2 13:54:22 Screenin g mammogra phy Completed 201807/11/2019 Problem Code: Z12.31; Problem Code Type: ICD-10; JAMESON ASHANEAR null, [employer] 2 13:54:22 Body mass index 30+ - obesity 344867775 Active 2020 Problem Code: Z68.32; Problem Code Type: ICD-10; Lizet Darby, [employer] [address] [place] [address], [phone] , [employer] 5 13:19:08 Degenera tion of cervical interver tebral disc 28637494 Completed 201708/12/2019 Problem Code: M50.321; Problem Code Type: ICD-10; Not Available [facility] 2 22:14:19 Benign essentia l hyperten otoniel 6058912 Active 2016 Problem Code: 401.1; Problem Code Type: ICD-9; Not Available [facility] 2 22:14:20 Dysuria 82125588 Completed 201909/14/2022 Problem Code: R30.0; Problem Code Type: ICD-10; JAMESON CAROLINE pinedo, [employer] 2 13:54:23 Screenin g for malignan t neoplasm of breast Completed 201704/07/2018 Problem Code: V76.10; Problem Code Type: ICD-9; Not Available [facility] 2 22:14:20 Consiste ncy of urine - finding 550108102 Completed 201909/14/2022 Problem Code: R82.90; Problem Code Type: ICD-10; JAMESON pinedo, [employer] 2 13:54:23 Screenin g mammogra phy Completed 201704/07/2018 Problem Code: Z12.31; Problem Code Type: ICD-10; JAMESON pinedo, [employer] 2 13:54:22 Body mass index 30+ - obesity 216050125 Completed 201703/03/2021 Problem Code: Z68.31; Problem Code Type: ICD-10; Lizet Wilner, [employer] AD[employer]IST[employer] [address] [place] [address], [phone] , [employer] 5 13:19:08 Problem Notes None recorded. Procedures Surgical History Date Name Laterality Status Provider Name and Address Organization Details Recorded Time 4 Most Recent Mammogram completed JAMESON VELAZQUEZ [employer] 09/12/2024 14:20:29 7 ligation of bilateral fallopian tubes completed Not Available [facility] 07/20/2022 22:56:18 Imaging Results None recorded. [...] Updated DateTime 5 162.56 cm 35.8 kg/m2 15853.0 9 g 98 [degF] 85 /min 95 % 95 % 107 mm[Hg] 44 mm[Hg] JAMESON VELAZQUEZ [employer] 5 10:57:09 Social History Question Answer Notes LastModified by Organizat ion Details LastModified Time Tobacco Smoking Status Never Smoker ANGELES BIRDCLEVE pinedo [employer] 10/23/2022 09:51:45 Do You Have An [...] Do You Have A Medical Power Of Loss Prevention Consultant? No Information not available 09/14/2022 What Was [...] Artery Disease N Other N Gout N Kidney Stones N Blood Diseases N Hyperthyroidism N Blood Transfusion N Breast Cancer N Emergency room visit since last appointm ent. N COPD N Depression N Dermatologic Disorders N Lung Disease N Hypothyroidism N Developmental or Behavioral Disorders N Defects or Inherited Disease N Breast Problem N Difficulty Swallowing N [...] Organ Transplant N Psychiatric/Mental Health Condition N Fibromyalgia N Dialysis N Schizophrenia N Headaches N Kidney Disease N Allergies/Hayfever N Heart Problems N Ear or Hearing Problems N Hospitalizations N Learning Disorder N Artificial Joints N Thyroid Problems N GI Problems N Acne N ADD/ADHD N Eating Disorder N Anemia N Constipation N Mental Illness N Ovarian Cancer N Diabetes N Bedwetting N Hepatitis/Liver Disease N Tuberculosis N Eczema N Diverticulitis N Abuse/Domestic Violence N Asthma N Trauma/Violence N Substance Abuse [...] zoster recombinant 4 completed Lizet Darby APRN [address] [place] [address], [phone], [employer] 04/06/2024 15:38:19 zoster recombinant 4 completed Lizet Darby APRN [address] [place] [address], [phone], [employer] 09/23/2024 19:09:26 COVID-19, mRNA, LNP-S, PF, 100 mcg/0.5mL dose or 50 mcg/0.25mL dose 1 completed JAMESON MYNEAR null, [employer] 09/14/2022 13:52:23 COVID-19, mRNA, LNP-S, PF, 100 mcg/0.5mL dose or 50 mcg/0.25mL dose 1 completed JAMESON MYNEAR null, [employer] 09/14/2022 13:52:23 COVID-19, mRNA, LNP-S, PF, 100 mcg/0.5mL dose or 50 mcg/0.25mL dose 1 completed JAMESON MYNEAR null, [employer] 09/14/2022 13:52:23 Past Encounters Encounter ID Performer Location Encounter Start Date Encounter Closed Date Diagnosis/Indication Diagnosis SNOMED-CT Code Diagnosis ICD10 Code Diagnosis Note [id number] Lizet Dabry, [employer] ADMINISTR[employer] [address] [address] 04/05/2025 10:46:55 04/05/2025 11:57:05 Essential hypertension 74971332 I10 DASH diet, exercise, weight loss encouraged . Mixed hyperlipidemia 267 595228 E78.2 Continue statin and low fat diet Body mass index 30+ - obesity 132404684 E66.9 Health Concerns Section Related Observation LastModified by Organization Detai ls LastModified Time None Recorded Concern Status LastModified by Organization Details LastModified Time None Recorded Payers Encounter Date Sequence Insurance Name Policy Number Policy Slater Covered Member ID Slater Member ID Guarantor Name 04/05/2025 1 [id number] (MEDICARE REPLACEMENT/A DVANTAGE - PPO) [id number] Coleen Chowdhury [id number] Coleen Chowdhury Notes Date Note Type Note [...] treatment of eczema. Lizet Darby APRN [address] [place], [address], [facility] [employer] 04/05/2025 13:19:32 OBGyn Episode No OBEpisode recorded.
[2025-05-11 05:14] LABS: Hepatitis B Surface Antigen Negative (Negative)
== END 2025-05-09 23:59 | disposition home or self-care (01) ==
LOC: LAB.DROPOF 05-10 10:17
PROVIDERS: PCP Nurse Practitioner Family; Visit Provider Nurse Practitioner Family
DX: N39.0 Urinary tract infection, site not specified (principal); R53.83 Other fatigue; R73.09 Other abnormal glucose; Z11.59 Encounter for screening for other viral diseases; Z11.4 Encounter for screening for human immunodeficiency virus [HIV]
CPT/HCPCS: 80053; 83036; 84443; 85025; 86803; 87340; 87389

== ENCOUNTER 2025-07-19 13:00 | Outpatient (CLI) | payer MEDICARE, SELFPAY | END 2025-07-19 23:59 | LOC: LAB.DROPOF 07-22 10:11 | PROVIDERS: PCP Nurse Practitioner Family; Visit Provider Nurse Practitioner Family | DX: N39.0 Urinary tract infection, site not specified (principal) | CPT/HCPCS: 87086; 87088 ==

== ENCOUNTER 2025-08-30 11:51 | Outpatient (CLI) | payer MEDICARE, SELFPAY | END 2025-08-30 23:59 | LOC: LAB.DROPOF 09-02 11:52 | PROVIDERS: PCP Nurse Practitioner Family; Visit Provider Nurse Practitioner Family | DX: R30.0 Dysuria (principal) | CPT/HCPCS: 87086; 87088; 87186 ==

== ENCOUNTER 2025-09-10 09:40 | Day surgery (SDC) | payer MEDICARE, SELFPAY ==
[2025-09-10 09:45] VITALS: BP 135/68; PULSE 85; RESP 16; O2SAT 99; BMI 36.0
[2025-09-10] MEDS: LIDOCAINE 1% 5ML PF VIAL 5 ML (10:03)
[2025-09-10] MEDS: BUPIVACAINE 0.25% 10ML INJ 25 MG IJ (10:03)
--- NOTE | 2025-09-10 10:12 | EXP.PAIN.PRO ---
Procedure Date: 09/10/25 Time: 09:55 Anesthesiologist:: David Tomas CRNA Complications:: None Pre-procedure Diagnosis:: Degenerative disc lumbar spine multilevels. Lumbar radiculopathy. Lumbar spondylosis. Multilevel lumbar facet arthropathy. Post-procedure Diagnosis:: Same. Indications for Procedure:: Patient is a very pleasant 75-year-old female comes our clinic today for diagnostic bilateral L4-5, L5-S1 medial branch block/facet injection with local anesthetic. Patient describes low lumbar back pain as constant, dull, aching. She reports difficulty standing for any length of time due to low back pain. She reports difficulty sitting for any length of time due to low back pain. She has difficulty with lumbar flexion, extension, left and right rotation. She rates her pain 7/10. Procedure Details:: Informed consent was obtained and the risk and benefits of the procedure was explained to the patient. Patient was taken to the procedure room where noninvasive monitors were placed, including noninvasive blood pressure cuff as well as pulse oximeter. The area over the lumbar spine was cleansed using chlorhexidine as a cleansing solution. I anesthetized the skin and subcutaneous tissues with 1% Lidocaine. I placed 22-gauge spinal needles into the facet joint/ medial branches of L4-L5, and L5-S1 bilaterally. Needle placement was confirmed with fluoroscopy. After confirmation of needle placement, each site was injected with 1 mL of 1% lidocaine and 0.25 % Marcaine 1 mL. Patient tolerated the procedure without difficulty. There were no complications. Plan and Disposition:: Patient was discharged without incident.
[2025-09-10 10:14] VITALS: BP 133/86; PULSE 89; RESP 16; O2SAT 95
[2025-09-10 10:23] VITALS: BP 159/93; PULSE 86; RESP 18; O2SAT 98
[2025-09-10 10:24] VITALS: BP 159/93; PULSE 86; RESP 18; O2SAT 98
== END 2025-09-10 10:14 | disposition home or self-care (01) ==
PROVIDERS: PCP Nurse Practitioner Family; Visit Provider Nurse Anesthetist, Certified Registered
DX: M47.816 Spondylosis without myelopathy or radiculopathy, lumbar region (principal); E78.5 Hyperlipidemia, unspecified; I10 Essential (primary) hypertension; F32.A Depression, unspecified; Z79.899 Other long term (current) drug therapy
CPT/HCPCS: 64493; 64494; J0665; J2003

== ENCOUNTER 2025-10-07 11:35 | Outpatient (CLI) | payer MEDICARE, SELFPAY ==
[2025-10-07 21:17] LABS: Hematocrit 40.7 % (37.0-47.0); Hemoglobin 12.2 g/dL (12.2-16.2); Immature Granulocytes % 0.3 %; Mean Corpuscular HGB Conc 30.0 g/dL (31.8-35.4); Mean Corpuscular Hemoglobin 28.1 pg (27.0-31.2); Mean Corpuscular Volume 93.8 fl (81-99); Nucleated Red Blood Cells % 0 %; Platelet Count 228 K/mm3 (142-424); Red Blood Count 4.34 M/mm3 (4.20-5.40); Red Cell Distribution Width-SD 49.7 fL; White Blood Count 6.0 K/mm3 (4.8-10.8)
[2025-10-07 21:37] LABS: Albumin Level 4.2 g/dl (3.5-5.0); Chloride 98 mmol/L (98-107); Sodium 140 mmol/L (136-145)
[2025-10-07 21:38] LABS: Potassium 4.0 mmoL/L (3.5-5.1)
[2025-10-07 21:40] LABS: Alanine Aminotransferase 19 U/L (12-78); Albumin/Globulin Ratio 1.4 (1.1-1.8); Alkaline Phosphatase 159 U/L (38-126); Anion Gap 16.0 mEq/L (5-15); Aspartate Amino Transferase 31 U/L (14-36); Bilirubin,Total 0.5 mg/dl (0.2-1.3); Blood Urea Nitrogen 14 mg/dl (7-17); Carbon Dioxide 30 mmol/L (22.0-30.0); Cholesterol 199 mg/dl (140-200); Creatinine,Serum 0.60 mg/dl (0.52-1.04); Estimated Glomerular Filt Rate 97 ml/min (>60); GFR (African American) 118 ML/MIN (>60); Globulin 3.0 g/dL (1.3-3.2); Glucose 68 mg/dl (74-100); Total Protein,Serum 7.2 g/dl (6.3-8.2); Triglycerides 114 mg/dl (30-150)
[2025-10-07 21:41] LABS: Calcium 9.3 mg/dl (8.4-10.2); HDL Cholesterol 72 mg/dl (40-60)
[2025-10-07 22:03] LABS: Hemoglobin A1C 5.7 % (4.0-6.0)
[2025-10-07 22:11] LABS: Thyroid Stimulating Hormone 2.38 uIU/mL (0.465-4.68)
[2025-10-07 22:32] LABS: 25-OH Vitamin D, Total 29.0 ng/mL (30-100)
[2025-10-07 23:08] LABS: Vitamin B12 > 1000 pg/mL (239-931)
== END 2025-10-07 23:59 ==
LOC: LAB.DROPOF 10-08 10:28
PROVIDERS: PCP Nurse Practitioner Family; Visit Provider Nurse Practitioner Family
DX: E78.5 Hyperlipidemia, unspecified (principal); R53.83 Other fatigue; R73.09 Other abnormal glucose; I10 Essential (primary) hypertension; Z68.36 Body mass index [BMI] 36.0-36.9, adult
CPT/HCPCS: 80053; 80061; 82306; 82607; 83036; 84443; 85025

== ENCOUNTER 2025-11-13 10:49 | Outpatient (CLI) | payer MEDICARE, SELFPAY ==
--- NOTE | 2025-11-13 11:00 | MM_ITS ---
PROCEDURE INFORMATION: Exam: MG Bilateral Screening 3D Mammography Exam date and time: 11/13/2025 10:54 AM Age: 75 years old Clinical indication: Screening. No family history of breast cancer. TECHNIQUE: Imaging protocol: Bilateral Screening tomosynthesis and 2D mammography including computer-aided detection (CAD) when performed. COMPARISON: 1. MG MM DIG SCREENING MAMM BI W/CAD 05/28/2024 9:44 AM 2. MG MM DIG SCREENING MAMM BI W/CAD 05/23/2023 10:37 AM FINDINGS: MAMMOGRAPHY: Breast composition: There are scattered areas of fibroglandular density. Mass: None. Architectural distortion: None. Calcifications: No suspicious calcifications. Asymmetric density: None. Skin thickening: None. Axillary adenopathy: None. IMPRESSION: No mammographic evidence of malignancy. Annual screening is recommended unless otherwise clinically indicated. ASSESSMENT: BI-RADS Category 1: Negative.
== END 2025-11-13 23:59 | disposition home or self-care (01) ==
LOC: RAD 10:49
PROVIDERS: PCP Nurse Practitioner Family; Visit Provider Nurse Practitioner Family
DX: Z12.31 Encounter for screening mammogram for malignant neoplasm of breast (principal); R92.323 Mammographic fibroglandular density, bilateral breasts
CPT/HCPCS: 77063; 77067